=== PATIENT | female | born 1930 | race Caucasian/White ===

== ENCOUNTER 2017-02-10 18:59 | Inpatient (IN) | payer MEDICARE ==
[~2017-02-10] VITALS: Ht 162.6 cm; Wt 90.7 kg
[~2017-02-10 18:59] MED LIST: ACETAMINOPHEN650 MG PO; ARICEPT10 M1 PO; ASPIR 8181 MG PO; ASTELIN30 ML NS; AZELASTINE137 MCG/0.; B12 PO; CALCIUM + D 601 EACH PO; CALCIUM600 MG PO; CEFUROXIME500 MG PO; CENTRUM SILVER1 EAC3 PO; COLACE50 MG PO; DESYREL100 MG PO; FAMOTIDINE20 MG PO; FUROSEMIDE40 MG PO; LANTUS100 UNIT/1 SQ; LEVAQUIN500 MG PO; LEVEMIR 3M100 UNITS/ SC; LEVEMIR100 UNIT/1 SQ; LEVOTHYROXINE125 MCG PO; LORAZEPAM0.5 MG PO; LUMIGAN2.5 M1 OU; MEDROL4 MG/DOSE- PO; METOPROLOL SUCC25 MG PO; MUCINEX DM ER1 EACH PO; NAMENDA10 MG PO; NITROGLYCERIN0.4 MG SL; NITROGLYCERIN1 EAC1 TOP; NORVASC5 MG PO; NOVOLOG100 UNIT/1 SC; NOVOLOG100 UNIT/1 SQ; REFRESH OPTIVE15 ML OU; RESTASIS1 EACH OU; TAMIFLU75 MG PO; TUSSIONEX PENN473 ML PO; ULTRAM 50MG50 MG PO; Z NOVOLIN N SQ; Z.0.AMLODIPINE BES2. PO; Z.0.FUROSEMIDE20 MG PO; Z.0.LANTUS100 UNIT/1 SQ; Z.0.LUMIGAN2.5 M1 OU; Z.0.NAMENDA10 MG PO; Z.0.SYNTHROID125 MCG PO; Z.0.ZYRTEC10 M3 PO; [UNRECOGNIZED DRUG - MIXTURE] PO; [UNRECOGNIZED DRUG - OTHER]; [UNRECOGNIZED DRUG - OTHER] NS; [UNRECOGNIZED DRUG - OTHER] PO; miralax PO; timolol OP
[2017-02-10] MEDS ORDERED: SODIUM CHLORIDE 0.9% 1000ML 1,000 ML IV ONE ×2 (20:15→21:30)
[2017-02-10] MEDS ORDERED: SODIUM CHLORIDE 0.9% 1000ML 2,000 ML ONE (20:17)
[2017-02-10 20:56] LABS: BILIRUBIN,URINE NEGATIVE (NEGATIVE); CLARITY,URINE CLEAR (CLEAR); COLOR,URINE YELLOW (YELLOW); KETONES,URINE 2+ (NEGATIVE); LEUKOCYTE ESTERASE ,URINE NEGATIVE (NEGATIVE); NITRITE,URINE NEGATIVE (NEGATIVE); PROTEIN,URINE DIPSTICK NEGATIVE (NEGATIVE); URINE UROBILINOGEN 0.2 mg/dL (0.2 - 1)
[2017-02-10] MEDS ORDERED: INSULIN REGULAR, HUMAN 100 UNIT/1 ML 3ML VIAL SQ ONE (21:00)
[2017-02-10 21:04] LABS: BASOPHILS # (AUTO) 0.1 (0.0-0.1); BASOPHILS % 0.4 % (0.0-1.0); HEMATOCRIT 42.1 % (34.2-44.1); HEMOGLOBIN 13.4 g/dL (12.0-16.0); LYMPHOCYTES # (AUTO) 0.6 (1.0-3.2); LYMPHOCYTES % 3.2 % (18.0-39.1); MEAN CORPUSCULAR HEMOGLOBIN 33.3 pg (28-32); MEAN CORPUSCULAR HGB CONC 31.8 g/dL (31-35); MEAN CORPUSCULAR VOLUME 104.5 fL (81-99); MONOCYTES # (AUTO) 0.9 (0.2-0.8); MONOCYTES % 4.6 % (4.4-11.3); NEUTROPHILS # (AUTO) 17.4 (2.1-6.9); NEUTROPHILS % 89.1 % (38.7-80.0); PLATELET COUNT 330 x10e3/uL (140-360); RED BLOOD COUNT 4.03 x10e6/uL (3.6-5.1); RED CELL DISTRIBUTION WIDTH 15.7 % (11.7-14.4)
[2017-02-10 21:12] LABS: EPITHELIAL CELLS,URINE FEW /LPF; RBC,URINE 0-5 /HPF (0-5); WBC,URINE (MAN) 0-5 /HPF (0-5)
--- NOTE | 2017-02-10 21:29 | Diagnostic Imaging Report ---
EXAMINATION: Head CT without contrast. HISTORY:Altered mental status. COMPARISON:CT brain from 11/24/2013. TECHNIQUE: Multidetector axial images were obtained from the foramen magnum to the vertex without contrast. The images were reconstructed using brain and bone algorithms. Thin section brain images were reformatted into coronal and sagittal planes. Intravenous contrast: None IMAGE QUALITY: Acceptable. FINDINGS: Skull/scalp: Unchanged heterogeneous bone marrow density within the skull base possibly due to osseous demineralization. Parenchyma: Nonspecific bilateral frontoparietal patchy white matter hypodensity are likely related to small vessel ischemic changes. No acute intracranial hemorrhage, mass or acute major vascular territorial infarct. Arteries: No density suggestive of thrombosis. Dural sinuses: No abnormal density suggestive of thrombosis. Ventricles: Unchanged moderate ventriculomegaly disproportionate to the extent of cerebral volume loss, may represent normal pressure hydrocephalus in the appropriate clinical setting. Extra-axial spaces: Unchanged tiny punctate fat density lesions scattered in the anterior interhemispheric fissure likely represents tiny lipoma. Brain volume: Normal for age. Craniocervical junction: No mass, Chiari malformation, or basilar invagination. Sella: No mass. Paranasal/mastoid sinuses: Mild mucosal thickening in bilateral maxillary and sphenoid sinuses. IMPRESSION: No acute intracranial abnormality, particularly no acute hemorrhage, mass or acute major vascular territorial infarct. Interval development of mild supratentorial white matter microvascular ischemic changes. Otherwise, no change since CT head from 11/24/2013. Chronic findings: Moderate ventriculomegaly disproportionate to the amount of cerebral volume loss, may represent normal pressure hydrocephalus in the appropriate clinical setting. Signed by: Dr. Josephine Phillips M.D. on 02/10/2017 9:26 PM
[2017-02-10 21:30] LABS: ALBUMIN/GLOBULIN RATIO 0.7 (0.8-2.0); ANION GAP 44.9 mmol/L (8-16); CALCIUM 8.2 mg/dL (8.4-10.2); CREATININE, SERUM 3.51 mg/dL (0.57-1.11); POTASSIUM 3.9 mmol/L (3.5-5.1)
[2017-02-10 21:38] LABS: CREATINE KINASE MB 1.8 ng/mL (0.00-5.00); TROPONIN I 0.019 ng/mL (0-0.300)
[2017-02-10] MEDS ORDERED: SODIUM CHLORIDE 0.9% 1000ML 1,000 ML IV SCH (21:39)
[2017-02-10] MEDS ORDERED: INSULIN REGULAR, HUMAN 3ML VL 100 UNIT in SODIUM CHLORIDE 0.9% 100 ML IV SCH ×2 (21:45)
[2017-02-10] MEDS ORDERED: INSULIN DETEMIR 100 UNIT/ML PEN SQ PRN (21:45)
[2017-02-10] MEDS ORDERED: MAGNESIUM SULF 1GRAM/DEXTROSE 100 ML IV PRN (21:45)
--- NOTE | 2017-02-10 21:56 | Diagnostic Imaging Report ---
EXAMINATION: CHEST SINGLE (PORTABLE) INDICATION: Altered mental status COMPARISON: 08/23/2015 FINDINGS: TUBES and LINES: None. LUNGS: Lungs are not well inflated. Lungs are clear. There is no evidence of pneumonia or pulmonary edema. PLEURA: No pleural effusion or pneumothorax. HEART AND MEDIASTINUM: Cardiac size is mildly enlarged. There are atherosclerotic calcifications within the aorta. BONES AND SOFT TISSUES: No acute osseous lesion. Soft tissues are unremarkable. UPPER ABDOMEN: No free air under the diaphragm. IMPRESSION: 1. No acute thoracic abnormality. 2. Mild cardiomegaly without the compensation. Signed by: Dr. Tone Husain M.D. on 02/10/2017 9:53 PM
[2017-02-10] MEDS ORDERED: POTASSIUM CHLORIDE 100 ML IV ONE (22:00)
[2017-02-10 22:12] LABS: LYMPHOCYTES % (MANUAL) 3 % (19-48); METAMYELOCYTES % (MANUAL) 2 % (0-0); MONOCYTES % (MANUAL) 3 % (3.4-9.0); NEUTROPHILS % (MANUAL) 92 % (40-74)
[2017-02-10 22:13] LABS: PLATELET ESTIMATE ADEQUATE; PLATELET MORPHOLOGY COMMENT FEW LARGE; RBC MORPHOLOGY COMMENT NORMAL
[2017-02-10] MEDS ORDERED: ACETAMINOPHEN 1000 MG/100 ML IV PRN (22:15)
[2017-02-10] MEDS ORDERED: ONDANSETRON HCL INJ 2 MG/ML VIAL IV PRN (22:15)
[2017-02-10] MEDS: DEXTROSE 5%/0.45% SOD CHL 1,000 ML IV SCH (23:52)
[2017-02-11] VITALS (9 sets, daily range): BP systolic 85–124; BP diastolic 33–73
[2017-02-11 00:21] LABS: ANION GAP 31.1 mmol/L (8-16); CALCIUM 7.2 mg/dL (8.4-10.2); CREATININE, SERUM 2.88 mg/dL (0.57-1.11); MAGNESIUM 2.6 MG/DL (1.3-2.1); POTASSIUM 4.1 mmol/L (3.5-5.1)
[2017-02-11] MEDS ORDERED: POTASSIUM CHLO10 ME1 PO (01:38)
[2017-02-11] MEDS ORDERED: LORATADINE10 MG PO (01:38)
[2017-02-11] MEDS ORDERED: ALBUTEROL0.63 MG/3 INH (01:38)
[2017-02-11] MEDS ORDERED: PANTOPRAZOLE SO40 MG PO (01:38)
[2017-02-11] MEDS ORDERED: TIMOLOL MALEATE10 ML OU (01:38)
[2017-02-11] MEDS ORDERED: BENZONATATE100 MG PO (01:38)
[2017-02-11] MEDS ORDERED: MELATONIN3 MG PO (01:38)
[2017-02-11] MEDS ORDERED: TRAVATAN Z5 ML OP (01:38)
[2017-02-11] MEDS ORDERED: DORZOLAMIDE-TIM10 ML OP (01:38)
[2017-02-11] MEDS ORDERED: RESTASIS1 EACH OU (01:38)
[2017-02-11] MEDS ORDERED: ADVAIR 250-501 EACH INH (01:38)
[2017-02-11] MEDS ORDERED: ARICEPT5 MG PO (01:38)
[2017-02-11] MEDS ORDERED: GLIPIZIDE5 MG PO (01:38)
[2017-02-11] MEDS ORDERED: HUMALOG100 UNIT/1 SC (01:38)
[2017-02-11] MEDS: DEXTROSE 5%/0.45% SOD CHL 1,000 ML IV SCH ×2 (02:00→13:20)
[2017-02-11 04:20] LABS: BASOPHILS % 0.2 % (0.0-1.0); HEMATOCRIT 34.6 % (34.2-44.1); HEMOGLOBIN 11.9 g/dL (12.0-16.0); LYMPHOCYTES # (AUTO) 1.1 (1.0-3.2); LYMPHOCYTES % 6.5 % (18.0-39.1); MEAN CORPUSCULAR HEMOGLOBIN 33.1 pg (28-32); MEAN CORPUSCULAR HGB CONC 34.4 g/dL (31-35); MEAN CORPUSCULAR VOLUME 96.4 fL (81-99); MONOCYTES % 5.7 % (4.4-11.3); NEUTROPHILS # (AUTO) 14.4 (2.1-6.9); NEUTROPHILS % 86.7 % (38.7-80.0); PLATELET COUNT 238 x10e3/uL (140-360); RED BLOOD COUNT 3.59 x10e6/uL (3.6-5.1); RED CELL DISTRIBUTION WIDTH 15.6 % (11.7-14.4)
[2017-02-11 04:38] LABS: ALBUMIN 2.5 g/dL (3.5-5.0); ALBUMIN/GLOBULIN RATIO 0.7 (0.8-2.0); ANION GAP 19.6 mmol/L (8-16); CALCIUM 7.2 mg/dL (8.4-10.2); CREATININE, SERUM 2.72 mg/dL (0.57-1.11); POTASSIUM 3.6 mmol/L (3.5-5.1)
[2017-02-11 04:44] LABS: CREATINE KINASE MB 3.3 ng/mL (0.00-5.00); TROPONIN I 0.021 ng/mL (0-0.300)
[2017-02-11] MEDS ORDERED: SODIUM CHLORIDE 0.9% 1000ML 1,000 ML IV SCH (05:45)
[2017-02-11] MEDS: DEXTROSE 50% SYRINGE 50 ML IV PRN (06:18)
[2017-02-11 11:10] LABS: ANION GAP 20.1 mmol/L (8-16); CREATININE, SERUM 2.25 mg/dL (0.57-1.11); POTASSIUM 4.1 mmol/L (3.5-5.1)
[2017-02-11 11:13] LABS: CALCIUM 6.5 mg/dL (8.4-10.2)
[2017-02-11] MEDS: INSULIN REGULAR, HUMAN 100 UNIT/1 ML 3ML VIAL SQ SCH ×4 (11:30→21:00)
[2017-02-11] MEDS: ALBUTEROL SULF 0.083% NEB SOLN 3 ML NEB INH SCH (12:30)
[2017-02-11] MEDS ORDERED: BENZONATATE 100 MG CAP PO PRN (12:30)
[2017-02-11] MEDS: BIMATOPROST(OPTH) 2.5 ML BOTTLE OP SCH (12:30)
[2017-02-11] MEDS ORDERED: LORAZEPAM 0.5 MG TAB PO PRN (12:30)
[2017-02-11] MEDS: GUAIFENESIN 600MG/DEXTROMETHORPHAN 30MG TABSR PO SCH ×3 (12:30→23:32)
[2017-02-11] MEDS ORDERED: [UNRECOGNIZED DRUG - OTHER] OU SCH (12:30)
[2017-02-11] MEDS ORDERED: GLYCERIN OU SCH (12:30)
[2017-02-11] MEDS ORDERED: CARBOXYMETHYLCELLULOS OU SCH (12:30)
[2017-02-11] MEDS: HEPARIN SOD (PORCINE) 5,000 UNIT/ML VIAL SC SCH ×2 (12:45→22:09)
[2017-02-11] MEDS: ARTIFICIAL TEARS (OPTH) 15 ML BTL OU SCH ×3 (13:00→21:00)
[2017-02-11] MEDS ORDERED: CALCIUM CHLORIDE 10% IV NR (14:00)
[2017-02-11] MEDS ORDERED: CALCIUM GLUCONATE 10% INJ 9.3 MEQ in SODIUM CHLORIDE 0.9% 100 ML 100 ML IV SCH (14:00)
[2017-02-11] MEDS ORDERED: SODIUM CHLORIDE 0.9% IV NR (14:00)
--- NOTE | 2017-02-11 14:27 | History and Physical ---
PRIMARY CARE PROVIDER: skilled nursing doctor. CHIEF COMPLAINT: Altered mental status and elevated sugar. HISTORY OF PRESENT ILLNESS: Ms. Rivera is an 86-year-old lady who resides at [facility]. She has been somewhat noncompliant with diet and difficult, not wanting to eat. She is blind. She does not want to go to the dining room to be fed, so the patient has had poor p.o. intake for the last couple of weeks. They have been holding her insulin, and today she has altered mental status. Blood sugar was noted to be around 500. She was sent to the hospital for evaluation. REVIEW OF SYSTEMS: Unobtainable due to patient being lethargic and impaired mental status. PAST MEDICAL HISTORY: Significant for hypertension, type-2 diabetes, hypothyroidism, dementia, COPD. She resides at [facility]. CURRENT MEDICATION LIST: Includes: 1. Tylenol as needed. 2. Astelin nasal spray. 3. Pepcid 20 mg daily. 4. Lasix 20 mg daily. 5. Glipizide 10 mg twice a day. 6. NovoLog insulin on sliding scale. 7. Claritin 10 mg daily. 8. She just finished a course of Levaquin and Tamiflu for pneumonia. 9. Potassium chloride 20 mEq daily. 10. Tramadol as needed. 11. Restasis eye drops twice a day. 12. Colace 50 mg daily. 13. Levemir 8 units at bedtime and 15 units in the a.m. 14. Several different types of eye drops for glaucoma. 15. Albuterol nebulizer treatments as needed. 16. Norvasc 10 mg daily. 17. Aspirin 81 mg daily. 18. Calcium carbonate 600 mg daily. 19. Aricept 10 mg at bedtime. 20. Advair Diskus 1 inhalation twice a day. 21. Levothyroxine 88 mcg daily. 22. Lorazepam 0.5 mg twice a day as needed for anxiety. 23. Melatonin 1 mg at bedtime. 24. Namenda 10 mg at bedtime. 25. Metoprolol succinate 12.5 mg twice a day. 26. Centrum Silver daily. 27. Protonix 40 mg q.a.m. PAST SURGICAL HISTORY: Unknown. ALLERGIES: THE PATIENT HAS A STATED ALLERGY TO CODEINE. FAMILY HISTORY: Unknown. SOCIAL HISTORY: The patient resides at [facility]. She does not smoke, drink or use illegal drugs. She requires quite a bit of assistance. She is wheelchair dependent and requires help with feeding because of blindness. PHYSICAL EXAMINATION PSYCHIATRIC: Unobtainable. The patient is lethargic. Has a normal body habitus. Is in no acute distress. VITAL SIGNS: Blood pressure initially 156/42, came down to 78/36, and currently is 94/52. The patient has been on no pressors. Pulse rate initially 100, now 77 and regular. Respiratory rate 15. O2 sat 100%. Temperature 97.6. HEENT: Head is atraumatic. Her eyes are anicteric with clear conjunctivae. Ears and nares are without erythema or discharge. Oropharynx is clear. NECK: Supple, with no mass or thyromegaly. LYMPHATIC SYSTEM: She has no palpable cervical, axillary or inguinal adenopathy. CARDIOVASCULAR: Her heart has a regular rate and rhythm without murmur or extra sounds. She has no carotid bruit. She has no peripheral edema. She has palpable dorsal pedal pulses. RESPIRATORY: Lungs reveal diminished breath sounds, otherwise clear with normal respiratory effort. GASTROINTESTINAL: Abdomen is soft without organomegaly, masses or tenderness. She has normal bowel sounds present. CUTANEOUS: Her skin is warm and dry to touch with no rash or skin breakdown. MUSCULOSKELETAL: Her joints are in normal alignment without erythema or swelling. She has no calf tenderness. NEUROLOGIC: Exam is nonfocal with intact cranial nerves and no motor or sensory deficits. DIAGNOSTIC STUDIES: Chest x-ray shows no acute disease. CT scan of the brain shows mild microvascular changes and some ventriculomegaly but no acute changes. Her UA is clear. Flu screen is negative. Her chemistries show normal electrolytes, CO2 7, glucose 587, creatinine 3.51, BUN 58 for a GFR of 12. Calcium 8.2. Baseline GFR was 34 six months ago. Calcium 8.2. Magnesium 2.8. Anion gap is 44.9. After being on a DKA protocol and getting fluid boluses and insulin drip, her chemistry this morning shows normal electrolytes, CO2 28, creatinine 2.72 and BUN 53 for a GFR of 16. Calcium is 7.2. Magnesium 2.0. Transaminases, bilirubin and alk phos are normal. Her CBC showed a white count of 19.57 with 92% neutrophils, 3% lymphocytes, 3% monocytes, hemoglobin 13.4, hematocrit 42.1 and platelet count 330,000. After the hydration overnight and DKA protocol, the patient's white count is 16.5 with 87% neutrophils, hemoglobin 11.9, hematocrit 34.6 and platelet count 238,000. IMPRESSION AND PLAN 1. Uncontrolled type-2 diabetes with diabetic ketoacidosis. The patient will be admitted to the ICU on DKA insulin drip protocol. She was on this overnight. The DKA is resolving. The patient will be changed to subcutaneous Levemir twice a day and sliding-scale insulin. Her diet will be advanced to 1800 calorie, pureed diet but will continue IV D5 half-normal until the patient is eating better due to impaired mental status. 2. Acute kidney injury. The patient received fluid bolus and is now on maintenance fluids. Will monitor renal function and volume status until the patient's renal function is back to baseline. 3. Hypertension complicated by chronic kidney disease, stage 3. Will continue her Norvasc and metoprolol. 4. Chronic obstructive pulmonary disease. Will continue routine nebs. 5. Dementia. Will provide supportive care. Will assess her feeding as she starts to wake up. The patient may or may not need a PEG, but we will wait a couple of days to decide. 6. For prophylaxis, the patient is on Protonix for GI prophylaxis and subcutaneous heparin for DVT prophylaxis. DISPOSITION: The patient has been in the ICU overnight. Her DKA has resolved, and the patient will be transferred to the floor. ADDENDUM: Sixty minutes of critical care time spent with the patient and the family on H and P. Job#: [id number]
[2017-02-11] MEDS: INSULIN DETEMIR 100 UNIT/ML PEN SQ SCH ×2 (14:47→21:33)
[2017-02-11] MEDS: DORZOLAMIDE/TIMOLOL (OPTH SOL) 10 ML DRPETTE OP SCH ×2 (15:00→21:00)
[2017-02-11] MEDS ORDERED: CALCIUM CHLORIDE 10% IV ONE (16:30)
[2017-02-11] MEDS ORDERED: SODIUM CHLORIDE 0.9% IV ONE (16:30)
[2017-02-11] MEDS ORDERED: LEVOTHYROXINE SODIUM 125 MCG TAB PO SCH (16:30)
[2017-02-11 16:46] LABS: ANION GAP 19.8 mmol/L (8-16); CREATININE, SERUM 2.35 mg/dL (0.57-1.11); MAGNESIUM 1.8 MG/DL (1.3-2.1); POTASSIUM 3.8 mmol/L (3.5-5.1)
[2017-02-11 16:48] LABS: CALCIUM 6.9 mg/dL (8.4-10.2)
[2017-02-11 16:49] LABS: CREATINE KINASE MB 3.6 ng/mL (0.00-5.00); TROPONIN I 0.032 ng/mL (0-0.300)
[2017-02-11] MEDS: TIMOLOL MALEATE(OPTHALMIC) 1 EA BTL OU SCH (17:00)
[2017-02-11] MEDS: METOPROLOL SUCCINATE 25 MG TAB XL PO SCH (17:00)
[2017-02-11 20:58] LABS: ANION GAP 16.4 mmol/L (8-16); CREATININE, SERUM 2.08 mg/dL (0.57-1.11); MAGNESIUM 1.8 MG/DL (1.3-2.1); POTASSIUM 3.4 mmol/L (3.5-5.1)
[2017-02-11 21:00] LABS: CALCIUM 6.7 mg/dL (8.4-10.2)
[2017-02-11] MEDS: MELATONIN 3 MG TAB PO SCH (21:00)
[2017-02-11] MEDS: DONEPEZIL HCL 5 MG TAB PO SCH (21:00)
[2017-02-11] MEDS ORDERED: MELATONIN 3 MG TAB PO SCH (21:00)
[2017-02-11] MEDS: TRAVOPROST(OPTH) 2.5 ML BTL OP SCH (21:00)
[2017-02-11] MEDS: MEMANTINE 10 MG TAB PO SCH (21:00)
[2017-02-12] VITALS: BP 103/54
[2017-02-12] MEDS: DEXTROSE 5%/0.45% SOD CHL 1,000 ML IV SCH ×2 (01:50→14:20)
[2017-02-12] MEDS: GUAIFENESIN 600MG/DEXTROMETHORPHAN 30MG TABSR PO SCH ×5 (05:52→20:29)
[2017-02-12] MEDS: LEVOTHYROXINE SODIUM 88 MCG TAB PO SCH ×2 (05:53→20:29)
[2017-02-12 07:15] LABS: BASOPHILS % 0.2 % (0.0-1.0); EOSINOPHILS % 0.3 % (0.0-6.0); HEMATOCRIT 31.1 % (34.2-44.1); HEMOGLOBIN 10.7 g/dL (12.0-16.0); LYMPHOCYTES # (AUTO) 1.7 (1.0-3.2); LYMPHOCYTES % 16.3 % (18.0-39.1); MEAN CORPUSCULAR HEMOGLOBIN 33.4 pg (28-32); MEAN CORPUSCULAR HGB CONC 34.4 g/dL (31-35); MEAN CORPUSCULAR VOLUME 97.2 fL (81-99); MONOCYTES # (AUTO) 0.5 (0.2-0.8); MONOCYTES % 4.6 % (4.4-11.3); NEUTROPHILS # (AUTO) 8.1 (2.1-6.9); PLATELET COUNT 178 x10e3/uL (140-360); RED CELL DISTRIBUTION WIDTH 16.1 % (11.7-14.4)
[2017-02-12] MEDS: DEXTROSE 50% SYRINGE 50 ML IV PRN (07:27)
[2017-02-12] MEDS: INSULIN REGULAR, HUMAN 100 UNIT/1 ML 3ML VIAL SQ SCH ×4 (07:30→20:28)
[2017-02-12] MEDS: PANTOPRAZOLE SOD 40 MG TABEC PO SCH (07:30)
[2017-02-12] MEDS: ALBUTEROL SULF 0.083% NEB SOLN 3 ML NEB INH SCH ×3 (07:33→21:00)
[2017-02-12 07:39] LABS: ANION GAP 11.9 mmol/L (8-16); CALCIUM 7.2 mg/dL (8.4-10.2); CREATININE, SERUM 1.49 mg/dL (0.57-1.11); MAGNESIUM 1.9 MG/DL (1.3-2.1)
[2017-02-12 07:51] VITALS: BP 103/50
[2017-02-12 08:01] LABS: POTASSIUM 2.9 mmol/L (3.5-5.1); THYROID STIMULATING HORMONE 14.939 uIU/mL (0.350-4.940)
[2017-02-12] MEDS: MULTIVITAMINS/MINERALS TAB PO SCH (08:22)
[2017-02-12] MEDS: ASPIRIN 81 MG CHEW TAB PO SCH (08:22)
[2017-02-12] MEDS: AMLODIPINE BESYLATE 5 MG TAB PO SCH (08:22)
[2017-02-12] MEDS: OYST-CAL-D 500MG TABLET PO SCH (08:23)
[2017-02-12] MEDS: INSULIN DETEMIR 100 UNIT/ML PEN SQ SCH ×2 (08:23→20:28)
[2017-02-12] MEDS: METOPROLOL SUCCINATE 25 MG TAB XL PO SCH ×2 (08:23→16:31)
[2017-02-12] MEDS: ARTIFICIAL TEARS (OPTH) 15 ML BTL OU SCH ×4 (08:41→20:27)
[2017-02-12] MEDS: BIMATOPROST(OPTH) 2.5 ML BOTTLE OP SCH (08:41)
[2017-02-12] MEDS: SALMETEROL/FLUTICASONE 250/50 INH SCH (08:41)
[2017-02-12] MEDS: DORZOLAMIDE/TIMOLOL (OPTH SOL) 10 ML DRPETTE OP SCH ×3 (08:41→20:27)
[2017-02-12] MEDS: TIMOLOL MALEATE(OPTHALMIC) 1 EA BTL OU SCH ×2 (08:43→16:46)
[2017-02-12] MEDS ORDERED: NON-FORMULARY MEDICATION (Mu-Vits-Min Th/Lycopene/Lutein (Centrum Silver Tablet) 1 TAB) PO SCH (09:00)
[2017-02-12] MEDS ORDERED: NON-FORMULARY MEDICATION (Calcium Carbonate (Calcium) 1 TAB) PO SCH (09:00)
[2017-02-12] MEDS: HEPARIN SOD (PORCINE) 5,000 UNIT/ML VIAL SC SCH ×2 (10:15→21:04)
[2017-02-12] MEDS ORDERED: POTASSIUM CHL IV ONE (11:30)
[2017-02-12] MEDS ORDERED: SODIUM CHLORIDE 0.9% IV ONE (11:30)
[2017-02-12 13:07] VITALS: BP 105/60
[2017-02-12] MEDS: CALCIUM CARBONATE 500 MG CHEWABLE TABS PO SCH (16:31)
[2017-02-12 17:33] VITALS: BP 101/59
[2017-02-12 20:00] VITALS: BP 112/55
[2017-02-12] MEDS: TRAVOPROST(OPTH) 2.5 ML BTL OP SCH (20:27)
[2017-02-12] MEDS: MEMANTINE 10 MG TAB PO SCH (20:28)
[2017-02-12] MEDS: MELATONIN 3 MG TAB PO SCH (20:28)
[2017-02-12] MEDS: DONEPEZIL HCL 5 MG TAB PO SCH (20:28)
[2017-02-12 23:03] LABS: ANION GAP 11.4 mmol/L (8-16); CREATININE, SERUM 1.01 mg/dL (0.57-1.11); POTASSIUM 4.4 mmol/L (3.5-5.1)
[2017-02-12 23:05] LABS: CALCIUM 6.9 mg/dL (8.4-10.2)
[2017-02-13] VITALS: BP 118/74
[2017-02-13] MEDS: ALBUTEROL SULF 0.083% NEB SOLN 3 ML NEB INH SCH ×4 (03:05→19:55)
[2017-02-13 04:00] VITALS: BP 124/78
[2017-02-13] MEDS: DEXTROSE 5%/0.45% SOD CHL 1,000 ML IV SCH ×3 (05:48→22:25)
[2017-02-13] MEDS ORDERED: CALCIUM GLUCONATE 10% INJ 4.65 MEQ in SODIUM CHLORIDE 0.9% 50ML 50 ML IV ONE (06:45)
[2017-02-13] MEDS: PANTOPRAZOLE SOD 40 MG TABEC PO SCH (07:30)
[2017-02-13 07:47] LABS: BASOPHILS % 0.2 % (0.0-1.0); EOSINOPHILS # (AUTO) 0.1 (0.0-0.4); EOSINOPHILS % 0.9 % (0.0-6.0); HEMATOCRIT 34.8 % (34.2-44.1); HEMOGLOBIN 11.5 g/dL (12.0-16.0); LYMPHOCYTES % 15.6 % (18.0-39.1); MEAN CORPUSCULAR HEMOGLOBIN 33.1 pg (28-32); MEAN CORPUSCULAR VOLUME 100.3 fL (81-99); MONOCYTES # (AUTO) 0.3 (0.2-0.8); MONOCYTES % 4.7 % (4.4-11.3); NEUTROPHILS % 78.1 % (38.7-80.0); PLATELET COUNT 158 x10e3/uL (140-360); RED BLOOD COUNT 3.47 x10e6/uL (3.6-5.1); RED CELL DISTRIBUTION WIDTH 16.7 % (11.7-14.4)
[2017-02-13] MEDS: AMLODIPINE BESYLATE 5 MG TAB PO SCH (07:51)
[2017-02-13] MEDS: ASPIRIN 81 MG CHEW TAB PO SCH (07:51)
[2017-02-13] MEDS: OYST-CAL-D 500MG TABLET PO SCH (07:51)
[2017-02-13] MEDS: MULTIVITAMINS/MINERALS TAB PO SCH (07:51)
[2017-02-13] MEDS: METOPROLOL SUCCINATE 25 MG TAB XL PO SCH ×2 (07:51→17:00)
[2017-02-13] MEDS: HEPARIN SOD (PORCINE) 5,000 UNIT/ML VIAL SC SCH ×2 (07:52→22:20)
[2017-02-13] MEDS: CALCIUM CARBONATE 500 MG CHEWABLE TABS PO SCH ×2 (07:52→17:00)
[2017-02-13] MEDS: INSULIN REGULAR, HUMAN 100 UNIT/1 ML 3ML VIAL SQ SCH ×4 (07:53→21:00)
[2017-02-13] MEDS: DORZOLAMIDE/TIMOLOL (OPTH SOL) 10 ML DRPETTE OP SCH ×3 (08:17→22:19)
[2017-02-13] MEDS: ARTIFICIAL TEARS (OPTH) 15 ML BTL OU SCH ×4 (08:17→22:19)
[2017-02-13] MEDS: SALMETEROL/FLUTICASONE 250/50 INH SCH (08:17)
[2017-02-13] MEDS: TIMOLOL MALEATE(OPTHALMIC) 1 EA BTL OU SCH ×2 (08:17→17:18)
[2017-02-13] MEDS: BIMATOPROST(OPTH) 2.5 ML BOTTLE OP SCH (08:17)
[2017-02-13 08:21] LABS: ANION GAP 11.4 mmol/L (8-16); CREATININE, SERUM 0.94 mg/dL (0.57-1.11); MAGNESIUM 1.9 MG/DL (1.3-2.1); POTASSIUM 4.4 mmol/L (3.5-5.1)
[2017-02-13 08:25] LABS: CALCIUM 6.8 mg/dL (8.4-10.2)
[2017-02-13] MEDS: INSULIN DETEMIR 100 UNIT/ML PEN SQ SCH (09:14)
[2017-02-13] MEDS ORDERED: SODIUM CHLORIDE 0.9% IV ONE (10:30)
[2017-02-13] MEDS ORDERED: CALCIUM CHLORIDE IV ONE (10:30)
[2017-02-13 10:47] VITALS: BP 120/55
[2017-02-13] MEDS: GUAIFENESIN 600MG/DEXTROMETHORPHAN 30MG TABSR PO SCH ×3 (12:00→22:17)
[2017-02-13 16:38] VITALS: BP 115/57
[2017-02-13] MEDS ORDERED: LEVOTHYROXINE SODIUM 100 MCG/VIAL IV ONE (17:00)
[2017-02-13 20:00] VITALS: BP 114/52
[2017-02-13] MEDS: MELATONIN 3 MG TAB PO SCH (21:00)
[2017-02-13] MEDS: MEMANTINE 10 MG TAB PO SCH (21:00)
[2017-02-13] MEDS: DONEPEZIL HCL 5 MG TAB PO SCH (21:00)
[2017-02-13] MEDS: TRAVOPROST(OPTH) 2.5 ML BTL OP SCH (22:19)
[2017-02-14] VITALS: BP 107/55
[2017-02-14] MEDS: ALBUTEROL SULF 0.083% NEB SOLN 3 ML NEB INH SCH ×3 (01:13→19:26)
[2017-02-14 04:00] VITALS: BP 101/45
[2017-02-14 07:08] LABS: BASOPHILS % 0.4 % (0.0-1.0); EOSINOPHILS # (AUTO) 0.2 (0.0-0.4); EOSINOPHILS % 2.7 % (0.0-6.0); HEMATOCRIT 33.9 % (34.2-44.1); LYMPHOCYTES # (AUTO) 1.7 (1.0-3.2); LYMPHOCYTES % 31.5 % (18.0-39.1); MEAN CORPUSCULAR HEMOGLOBIN 32.9 pg (28-32); MEAN CORPUSCULAR HGB CONC 32.4 g/dL (31-35); MEAN CORPUSCULAR VOLUME 101.5 fL (81-99); MONOCYTES # (AUTO) 0.3 (0.2-0.8); NEUTROPHILS # (AUTO) 3.2 (2.1-6.9); PLATELET COUNT 149 x10e3/uL (140-360); RED BLOOD COUNT 3.34 x10e6/uL (3.6-5.1); RED CELL DISTRIBUTION WIDTH 16.5 % (11.7-14.4)
[2017-02-14] MEDS: INSULIN REGULAR, HUMAN 100 UNIT/1 ML 3ML VIAL SQ SCH ×4 (07:30→21:00)
[2017-02-14] MEDS: PANTOPRAZOLE SOD 40 MG TABEC PO SCH (07:30)
[2017-02-14] MEDS: SALMETEROL/FLUTICASONE 250/50 INH SCH (07:31)
[2017-02-14 07:37] LABS: ANION GAP 10.6 mmol/L (8-16); BLOOD UREA NITROGEN 9 mg/dL (7-26); BUN/CREATININE RATIO 14 (6-25); CARBON DIOXIDE 27 mmol/L (22-29); CHLORIDE 108 mmol/L (98-107); CREATININE, SERUM 0.63 mg/dL (0.57-1.11); EST GLOMERULAR FILTRATION RATE > 60 ML/MIN (60-); GLUCOSE 93 mg/dL (74-118); POTASSIUM 3.6 mmol/L (3.5-5.1); SODIUM 142 mmol/L (136-145)
[2017-02-14 07:40] LABS: CALCIUM 6.9 mg/dL (8.4-10.2)
[2017-02-14 08:00] VITALS: BP 124/62
[2017-02-14] MEDS ORDERED: CALCIUM GLUCONATE 10% INJ 9.3 MEQ in SODIUM CHLORIDE 0.9% 100 ML 100 ML IV ONE (08:30)
[2017-02-14] MEDS: OYST-CAL-D 500MG TABLET PO SCH (09:00)
[2017-02-14] MEDS: INSULIN DETEMIR 100 UNIT/ML PEN SQ SCH (09:00)
[2017-02-14] MEDS: MULTIVITAMINS/MINERALS TAB PO SCH (09:00)
[2017-02-14] MEDS: AMLODIPINE BESYLATE 5 MG TAB PO SCH (09:00)
[2017-02-14] MEDS: CALCIUM CARBONATE 500 MG CHEWABLE TABS PO SCH ×2 (09:00→17:05)
[2017-02-14] MEDS: METOPROLOL SUCCINATE 25 MG TAB XL PO SCH ×2 (09:00→15:42)
[2017-02-14] MEDS: ASPIRIN 81 MG CHEW TAB PO SCH (09:00)
[2017-02-14] MEDS: BIMATOPROST(OPTH) 2.5 ML BOTTLE OP SCH (09:57)
[2017-02-14] MEDS: DORZOLAMIDE/TIMOLOL (OPTH SOL) 10 ML DRPETTE OP SCH ×3 (09:57→21:00)
[2017-02-14] MEDS: HEPARIN SOD (PORCINE) 5,000 UNIT/ML VIAL SC SCH ×2 (09:58→21:00)
[2017-02-14] MEDS: TIMOLOL MALEATE(OPTHALMIC) 1 EA BTL OU SCH ×2 (09:58→17:05)
[2017-02-14] MEDS: DEXTROSE 5%/0.45% SOD CHL 1,000 ML IV SCH ×2 (09:59→21:30)
[2017-02-14] MEDS: ARTIFICIAL TEARS (OPTH) 15 ML BTL OU SCH ×4 (09:59→21:00)
--- NOTE | 2017-02-14 10:31 | Progress Note ---
DATE: PCP: Dr. Eliseo Villalta CHIEF COMPLAINT: Altered mental status, dehydration and DKA. SUBJECTIVE: No new issues. Patient's son and [id number] are at bedside. Asked questions about Hospice versus PEG tube versus NG tube. All questions were answered. OBJECTIVE VITALS: Temperature 96.1, pulse 64, blood pressure 120/55, respirations 20, and satting 93%, weight 200, BMI 34.32. GENERAL: Patient is asleep at this time. LUNGS: Clear to auscultation bilaterally. ABDOMEN: Soft. Bowel sounds present. It is nontender and nondistended. Patient is obese. Pendulous abdomen. NECK: Supple. Trachea midline. EXTREMITIES: No calf tenderness. No edema. NEUROLOGICAL: Patient is confused, although the patient's son thinks that she is more alert today. MEDICATIONS: Please see MAR. LABS: Sodium 140, potassium 4.4, chloride 107, CO2 26, BUN 19, creatinine 0.94, glucose 483. Current glucose fingerstick is 121. White count 6.41, hemoglobin 11.5, hematocrit 34.8. DIAGNOSES 1. Uncontrolled diabetes mellitus, type 2 with diabetic ketoacidosis: Patient has D5W at 75 mL per hour. Patient is on sliding scale. Blood sugar was 121 on the last one. 2. Acute kidney injury: Continue on intravenous fluids. Creatinine 0.94 and stable. 3. Hypertension: Will continue to monitor blood pressure. Blood pressure has been stable today. 4. Chronic obstructive pulmonary disease: Continue with neb treatments. 5. Dementia: Continue with supportive care. 6. Hypokalemia: This is resolved and 4.4 today. 7. Elevated TSH: Likely due to refusal to take medications. Will continue to monitor TSH. Will likely change to intravenous levothyroxine at half the dose the patient is on right now. 8. Hypokalemia: Patient was started on Tums by previous provider. 9. Hypernatremia: Patient's sodium is 140, which is stable. Will continue to monitor the patient. DICTATED BY STUART CASTILLO NP Job#: [id number] [place]
[2017-02-14 11:44] VITALS: BP 148/72
[2017-02-14] MEDS: GUAIFENESIN 600MG/DEXTROMETHORPHAN 30MG TABSR PO SCH ×2 (12:00→17:05)
[2017-02-14 15:56] VITALS: BP 106/49
--- NOTE | 2017-02-14 16:12 | Diagnostic Imaging Report ---
PROCEDURE:X-RAY MODIFIED BARIUM SWALLOW COMPARISON:None. INDICATIONS:Not provided. DISCUSSION:Fluoroscopic examination was performed in conjunction with speech pathology, during swallowing of a variety of thin and thick liquid consistencies. Fluoroscopy time 16 seconds Cumulative area dose product 29.63 cGycm2 Cumulative air kerma 0.78 mGy CONCLUSION:No penetration or aspiration. Please see the report from speech pathology for complete details. Dictated by: Josep Cano M.D. on 02/14/2017 at 16:21 Electronically approved by: Josep Cano M.D. on 02/14/2017 at 16:21
[2017-02-14 20:00] VITALS: BP 118/66
[2017-02-14] MEDS: TRAVOPROST(OPTH) 2.5 ML BTL OP SCH (21:00)
[2017-02-14] MEDS: MELATONIN 3 MG TAB PO SCH (21:00)
[2017-02-14] MEDS: DONEPEZIL HCL 5 MG TAB PO SCH (21:00)
[2017-02-14] MEDS: MEMANTINE 10 MG TAB PO SCH (21:00)
[2017-02-15 00:39] VITALS: BP 125/66
[2017-02-15] MEDS: ALBUTEROL SULF 0.083% NEB SOLN 3 ML NEB INH SCH ×2 (00:55→07:25)
[2017-02-15 04:00] VITALS: BP 118/60
[2017-02-15] MEDS: GUAIFENESIN 600MG/DEXTROMETHORPHAN 30MG TABSR PO SCH ×3 (06:17→12:06)
[2017-02-15 06:47] LABS: BASOPHILS % 0.6 % (0.0-1.0); EOSINOPHILS # (AUTO) 0.2 (0.0-0.4); EOSINOPHILS % 3.3 % (0.0-6.0); HEMATOCRIT 33.7 % (34.2-44.1); LYMPHOCYTES # (AUTO) 1.7 (1.0-3.2); LYMPHOCYTES % 30.4 % (18.0-39.1); MEAN CORPUSCULAR HGB CONC 32.6 g/dL (31-35); MEAN CORPUSCULAR VOLUME 101.2 fL (81-99); MONOCYTES # (AUTO) 0.4 (0.2-0.8); MONOCYTES % 7.2 % (4.4-11.3); NEUTROPHILS # (AUTO) 3.1 (2.1-6.9); NEUTROPHILS % 56.8 % (38.7-80.0); PLATELET COUNT 137 x10e3/uL (140-360); RED BLOOD COUNT 3.33 x10e6/uL (3.6-5.1); RED CELL DISTRIBUTION WIDTH 15.9 % (11.7-14.4)
[2017-02-15 07:12] LABS: ANION GAP 10.8 mmol/L (8-16); BLOOD UREA NITROGEN 8 mg/dL (7-26); BUN/CREATININE RATIO 12 (6-25); CALCIUM 7.4 mg/dL (8.4-10.2); CARBON DIOXIDE 26 mmol/L (22-29); CHLORIDE 107 mmol/L (98-107); CREATININE, SERUM 0.65 mg/dL (0.57-1.11); EST GLOMERULAR FILTRATION RATE > 60 ML/MIN (60-); GLUCOSE 190 mg/dL (74-118); POTASSIUM 3.8 mmol/L (3.5-5.1); SODIUM 140 mmol/L (136-145)
[2017-02-15] MEDS: SALMETEROL/FLUTICASONE 250/50 INH SCH (07:25)
[2017-02-15 08:00] VITALS: BP 133/65
[2017-02-15] MEDS: ASPIRIN 81 MG CHEW TAB PO SCH (08:10)
[2017-02-15] MEDS: TIMOLOL MALEATE(OPTHALMIC) 1 EA BTL OU SCH (08:10)
[2017-02-15] MEDS: OYST-CAL-D 500MG TABLET PO SCH (08:10)
[2017-02-15] MEDS: INSULIN REGULAR, HUMAN 100 UNIT/1 ML 3ML VIAL SQ SCH ×2 (08:10→12:06)
[2017-02-15] MEDS: AMLODIPINE BESYLATE 5 MG TAB PO SCH (08:10)
[2017-02-15] MEDS: DORZOLAMIDE/TIMOLOL (OPTH SOL) 10 ML DRPETTE OP SCH ×2 (08:10→15:03)
[2017-02-15] MEDS: PANTOPRAZOLE SOD 40 MG TABEC PO SCH (08:10)
[2017-02-15] MEDS: BIMATOPROST(OPTH) 2.5 ML BOTTLE OP SCH (08:10)
[2017-02-15] MEDS: INSULIN DETEMIR 100 UNIT/ML PEN SQ SCH (08:10)
[2017-02-15] MEDS: HEPARIN SOD (PORCINE) 5,000 UNIT/ML VIAL SC SCH (08:10)
[2017-02-15] MEDS: METOPROLOL SUCCINATE 25 MG TAB XL PO SCH (08:10)
[2017-02-15] MEDS: MULTIVITAMINS/MINERALS TAB PO SCH (08:10)
[2017-02-15] MEDS: ARTIFICIAL TEARS (OPTH) 15 ML BTL OU SCH ×2 (08:10→12:06)
[2017-02-15] MEDS: CALCIUM CARBONATE 500 MG CHEWABLE TABS PO SCH (09:00)
[2017-02-15] MEDS ORDERED: CALCIUM GLUCONATE 10% INJ 9.3 MEQ in SODIUM CHLORIDE 0.9% 100 ML 100 ML IV ONE (10:15)
[2017-02-15] MEDS ORDERED: Calcium Carbonate 500MG Chew PO (10:22)
[2017-02-15] MEDS ORDERED: SODIUM CHLORIDE 0.9% IV SCH (11:00)
[2017-02-15] MEDS ORDERED: CALCIUM CHLORIDE IV SCH (11:00)
[2017-02-15 12:02] VITALS: BP 121/51
--- NOTE | 2017-02-16 13:01 | Discharge Summary ---
ADMITTING DIAGNOSES 1. Uncontrolled type 2 diabetes with diabetic ketoacidosis. 2. Acute kidney injury. 3. Hypertension. 4. Chronic obstructive pulmonary disease. 5. Dementia. DISCHARGE DIAGNOSES 1. Uncontrolled type 2 diabetes with diabetic ketoacidosis. 2. Acute kidney injury. 3. Hypertension. 4. Chronic obstructive pulmonary disease. 5. Dementia. 6. Hypocalcemia. HISTORY: Patient has a history of hypertension, type 2 diabetes, hypothyroidism, dementia, and COPD. Patient is legally blind. She is a resident at [facility]. HOSPITAL COURSE: An 86-year-old female who has been noncompliant with diet and medication, not wanting to eat or take meds. She had poor intake for the last couple of weeks. They have been holding her insulin and her sugar has been noted to be around 500. She was sent to the hospital for evaluation. On admission, a chest x-ray showed no acute thoracic abnormality, mild cardiomegaly without decompensation. CT of the brain showed no acute intracranial abnormality, particularly no acute hemorrhage, mass, or acute major vascular territorial infarct. Chronic findings were moderate ventriculomegaly, disproportionate to the amount of cerebral volume loss. For diabetes, patient was sent to ICU and put on insulin drip protocol. As the DKA resolved, the patient was taken out of ICU and transferred to the floor. She was changed to Levemir twice a day and sliding scale insulin. Her diet was advanced, but the patient still continued to not want to eat or take medication. Swallow evaluation was done and an MBS was done that showed no penetration or aspiration. Patient was allowed to eat and eventually started to eat and take her medications. Patient received many liters of fluid to address the acute kidney injury and dehydration from the DKA. Hypertension, COPD, and dementia were cared for with chronic medications and supportive care. When speaking to the son if the patient was not able to swallow, he was unsure whether he would want a PEG placement or hospice care. Since the patient passed the swallow evaluation and began to eat, the son agreed that the patient can be sent back to [facility]. He was informed that once she gets to the longterm if she decides not to eat that they can invoke hospice at that point. He is aware and agrees with the plan. Transferred to [facility] today. Dictated by: Beth Burks NP ELVIN ESTEVEZ MD Job#: [id number] JUANA
== END 2017-02-15 15:53 | DRG 638 ==
LOC: ER 19:07 → ERHOLD 02-11 00:47 → MED/SURG2 02-11 14:53
PROVIDERS: ADMIT Internal Medicine; ATTEND Internal Medicine
DX: E13.10 Other specified diabetes mellitus with ketoacidosis without coma (principal); N17.9 Acute kidney failure, unspecified; E87.0 Hyperosmolality and hypernatremia; I95.9 Hypotension, unspecified; E86.0 Dehydration; N18.3 Chronic kidney disease, stage 3 (moderate); E83.51 Hypocalcemia; F03.90 Unspecified dementia, unspecified severity, without behavioral disturbance, psychotic disturbance, mood disturbance, and anxiety; I12.9 Hypertensive chronic kidney disease with stage 1 through stage 4 chronic kidney disease, or unspecified chronic kidney disease; E03.9 Hypothyroidism, unspecified; E87.6 Hypokalemia; Z91.11 Patient's noncompliance with dietary regimen; Z91.14 Patient's other noncompliance with medication regimen; Z99.3 Dependence on wheelchair; Z79.4 Long term (current) use of insulin; H54.7 Unspecified visual loss
CPT/HCPCS: 36415; 70450; 71010; 74230; 80048; 80053; 81001; 82140; 82550; 82553; 82948; 83605; 83735; 84443; 84484; 85025; 87086; 87400; 93005; 94640; 97139; 99284; J0610; J1644; J3480; J7030; J7040; J7050; J7799

== ENCOUNTER 2017-05-05 16:07 | Inpatient (IN) | payer MEDICARE, OTHER ==
[~2017-05-05] VITALS: Ht 162.6 cm; Wt 74.0 kg
[~2017-05-05 16:07] MED LIST changes: +ADVAIR 250-501 EACH INH; +ALBUTEROL0.63 MG/3 INH; +ARICEPT5 MG PO; +BENZONATATE100 MG PO; +Calcium Carbonate 500MG Chew PO; +DORZOLAMIDE-TIM10 ML OP; +GLIPIZIDE5 MG PO; +HUMALOG100 UNIT/1 SC; +LORATADINE10 MG PO; +MELATONIN3 MG PO; +PANTOPRAZOLE SO40 MG PO; +POTASSIUM CHLO10 ME1 PO; +TIMOLOL MALEATE10 ML OU; +TRAVATAN Z5 ML OP
--- OUTSIDE RECORDS SUMMARY | 2017-05-05 16:10 | XMS REPORT ---
Author Author [facility] Address Unknown Phone Unavailable Care Team Providers Care Drawer In Stitch Bonding Machine Name Role Phone ELVIN ESTEVEZ Unavailable Unavailable Problems This patient has no known problems. Allergies, Adverse Reactions, Alerts This patient has no known allergies or adverse reactions. Medications This patient has no known medications. Results Test Description Test Time Test Comments Text Results Atomic Results Result Comments MODIFIED BA. SWALLOW [place] [address] Patient Name: FRANKY GARRETT MR #: [id number] : 1930 Age/Sex: 86/F Req #: [id number] [facility] Physician: ELVIN ESTEVEZ MD Ordered by: STUART CASTILLO CARTOGRAPHY TECHNICIAN Report #: [id number] Location: MED/SURG2 Room/Bed: [facility] Procedure: [id number] DX/MODIFIED BA. SWALLOW Exam Date: 02/14/17 Exam Time: 1455 REPORT STATUS: Signed PROCEDURE : X-RAY MODIFIED BARIUM SWALLOW COMPARISON: None. INDICATIONS: Not provided. DISCUSSION: Fluoroscopic examination was performed in conjunction with speech pathology, during swallowing of a variety of thin and thick liquid consistencies. Fluoroscopy time 16 seconds Cumulative area dose product 29.63 cGycm2 Cumulative air kerma 0.78 mGy CONCLUSION: No penetration or aspiration. Please see the report from speech pathology for complete details. Dictated by: Josep Elizondo M.D. on 02/14/2017 at 16:21 Electronically approved by: Josep Elizondo M.D. on 02/14/2017 at 16:21 Dictated By: JOSEP ELIZONDO MD 20 Transcribed By: HELEN on 02/14/17 162 COPY TO: STUART CASTILLO NP CT BRAIN WO [place] [address] Patient Name: FRANKY GARRETT MR #: [id number] : 1930 Age/Sex: 86/F Req #: [id number] Adm Physician: Ordered by: HOLLY OCHOA MD Report #: [id number] Location: ER Room/Bed: Procedure: [id number] CT/CT BRAIN WO Exam Date: 02/10/17 Exam Time: 2049 REPORT STATUS: Signed EXAMINATION: Head CT without contrast. HISTORY:Altered mental status. COMPARISON:CT brain from 11/24/2013. TECHNIQUE: Multidetector axial images were obtained from the foramen magnum to the vertex without contrast. The images were reconstructed using brain and bone algorithms. Thin section brain images were reformatted into coronal and sagittal planes. Intravenous contrast: None IMAGE QUALITY: Acceptable. FINDINGS: Skull/scalp: Unchanged heterogeneous bone marrow density within the skull base possibly due to osseous demineralization. Parenchyma: Nonspecific bilateral frontoparietal patchy white matter hypodensity are likely related to small vessel ischemic changes. No acute intracranial hemorrhage, mass or acute major vascular territorial infarct. Arteries: No density suggestive of thrombosis. Dural sinuses: No abnormal density suggestive of thrombosis. Ventricles: Unchanged moderate ventriculomegaly disproportionate to the extent of cerebral volume loss, may represent normal pressure hydrocephalus in the appropriate clinical setting. Extra-axial spaces: Unchanged tiny punctate fat density lesions scattered in the anterior interhemispheric fissure likely represents tiny lipoma. Brain volume: Normal for age. Craniocervical junction: No mass, Chiari malformation, or basilar invagination. Sella: No mass. Paranasal/mastoid sinuses: Mild mucosal thickening in bilateral maxillary and sphenoid sinuses. IMPRESSION: No acute intracranial abnormality, particularly no acute hemorrhage, mass or acute major vascular territorial infarct. Interval development of mild supratentorial white matter microvascular ischemic changes. Otherwise, no change since CT head from 11/24/2013. Chronic findings: Moderate ventriculomegaly disproportionate to the amount of cerebral volume loss, may represent normal pressure hydrocephalus in the appropriate clinical setting. Signed by: Dr. Josephine Phillips M.D. on 02/10 9:26 PM Dictated By: JOSEPHINE PHILLIPS MD 25 Transcribed By: SHARAD on 02/10/172125 COPY TO: HOLLY OCHOA MD CHEST SINGLE (PORTABLE) [place] [address] Patient Name: FRANKY GARRETT MR #: [id number] : 1930 Age/Sex: 86/F Req #: [id number] Adm Physician: Ordered by: HOLLY OCHOA MD Report #: [id number] Location: ER Room/Bed: ___ Procedure: [id number] DX/CHEST SINGLE (PORTABLE) Exam Date: 02/10/17 Exam Time: 2054 REPORT STATUS: Signed EXAMINATION: CHEST SINGLE (PORTABLE) INDICATION: Altered mental status COMPARISON: 08/23/2015 FINDINGS: TUBES and LINES : None. LUNGS: Lungs are not well inflated. Lungs are clear. There is no evidence of pneumonia or pulmonary edema. PLEURA: No pleural effusion or pneumothorax. HEART AND MEDIASTINUM: Cardiac size is mildly enlarged. There are atherosclerotic calcifications within the aorta. BONES AND SOFT TISSUES: No acute osseous lesion. Soft tissues are unremarkable. UPPER ABDOMEN: No free air under the diaphragm. IMPRESSION: 1. No acute thoracic abnormality. 2. Mild cardiomegaly without the compensation. Signed by: Dr. Tone Husain M.D. on 02/10/2017 9: 53 PM Dictated By: TONE MCMULLEN MD 52 Transcribed By: SHARAD on 02/10/172152 COPY TO: HOLLY OCHOA MD
[2017-05-05] MEDS ORDERED: ALBUTEROL SULF 0.083% NEB SOLN 3 ML NEB NEB STA (16:12)
[2017-05-05] MEDS ORDERED: IPRATROPIUM BROMIDE 0.02% 2.5 ML NEB NEB STA (16:12)
[2017-05-05] MEDS ORDERED: FUROSEMIDE INJ 10 MG/ML 4 ML VIAL IV ONE (16:15)
[2017-05-05 16:50] LABS: BASOPHILS # (AUTO) 0.1 (0.0-0.1); BASOPHILS % 0.3 % (0.0-1.0); BILIRUBIN,URINE NEGATIVE (NEGATIVE); CLARITY,URINE SL CLOUDY (CLEAR); COLOR,URINE YELLOW (YELLOW); EOSINOPHILS # (AUTO) 0.1 (0.0-0.4); EOSINOPHILS % 0.4 % (0.0-6.0); HEMATOCRIT 34.6 % (34.2-44.1); HEMOGLOBIN 10.6 g/dL (12.0-16.0); KETONES,URINE NEGATIVE (NEGATIVE); LEUKOCYTE ESTERASE ,URINE NEGATIVE (NEGATIVE); LYMPHOCYTES # (AUTO) 1.5 (1.0-3.2); MEAN CORPUSCULAR HEMOGLOBIN 31.4 pg (28-32); MEAN CORPUSCULAR HGB CONC 30.6 g/dL (31-35); MEAN CORPUSCULAR VOLUME 102.4 fL (81-99); MONOCYTES # (AUTO) 0.9 (0.2-0.8); MONOCYTES % 5.2 % (4.4-11.3); NEUTROPHILS # (AUTO) 13.9 (2.1-6.9); NEUTROPHILS % 84.4 % (38.7-80.0); NITRITE,URINE NEGATIVE (NEGATIVE); PLATELET COUNT 340 x10e3/uL (140-360); PROTEIN,URINE DIPSTICK 1+ (NEGATIVE); RED BLOOD COUNT 3.38 x10e6/uL (3.6-5.1); RED CELL DISTRIBUTION WIDTH 14.2 % (11.7-14.4); URINE UROBILINOGEN 0.2 mg/dL (0.2 - 1)
[2017-05-05] MEDS ORDERED: ACETAMINOPHEN 1000 MG/100 ML IV STA (16:58)
[2017-05-05 17:03] LABS: AMORPHOUS SEDIMENT,URINE FEW (FEW); BACTERIA,URINE MODERATE /HPF; EPITHELIAL CELLS,URINE FEW /LPF
[2017-05-05 17:06] LABS: INR 1.06; PARTIAL THROMBOPLASTIN TIME 26.4 seconds (23.8-35.5)
[2017-05-05 17:19] LABS: ABG PCO2 72 mmHg (41-51); ABG PO2 89 mmHg (80-105)
[2017-05-05 17:19] LABS: ALBUMIN 3.2 g/dL (3.5-5.0); ALBUMIN/GLOBULIN RATIO 0.8 (0.8-2.0); ANION GAP 12.8 mmol/L (8-16); CALCIUM 8.7 mg/dL (8.4-10.2); CREATININE, SERUM 0.94 mg/dL (0.57-1.11); MAGNESIUM 1.9 MG/DL (1.3-2.1); POTASSIUM 3.8 mmol/L (3.5-5.1)
[2017-05-05 17:20] LABS: ABG HCO3 36 mmol/L (23-28)
[2017-05-05 17:21] LABS: B-TYPE NATRIURETIC PEPTIDE2 220.4 pg/mL (0-100)
[2017-05-05 17:39] LABS: CREATINE KINASE MB 2.4 ng/mL (0-5.0); THYROID STIMULATING HORMONE 24.921 uIU/mL (0.350-4.940)
[2017-05-05] MEDS ORDERED: AZITHROMYCIN 500MG/SOD CHL 0.9% 250ML BAG IV SCH (17:45)
--- NOTE | 2017-05-05 18:24 | Diagnostic Imaging Report ---
PROCEDURE: A single AP view of the chest. COMPARISON: None. INDICATIONS: RESPIRATORY DISTRESS FINDINGS: Lines/tubes: None. Lungs: Lungs are hypoinflated. Diffuse interstitial opacities consistent pulmonary edema. Atelectasis in bilateral lung bases. Pleura: Moderate pleural effusion. Small left pleural effusion. Heart and mediastinum: The heart and the mediastinum are unremarkable. Bones: No acute bony abnormality. IMPRESSION: Pulmonary edema with moderate right and small left pleural effusions. Dictated by: Willam Huerta M.D. on 05/05/2017 at 18:24 Electronically approved by: Willam Huerta M.D. on 05/05/2017 at 18:24
[2017-05-05] MEDS ORDERED: SODIUM CHLORIDE 0.9% 500ML 500 ML IV STA (18:29)
[2017-05-05] MEDS: AZITHROMYCIN 500MG/NS 250 ML 250 ML IV SCH (19:03)
[2017-05-05] MEDS: CEFTRIAXONE SOD 1 GM VIAL IV SCH (19:03)
[2017-05-05] MEDS: SODIUM CHLORIDE 0.9% 1000ML 1,000 ML IV SCH (19:03)
[2017-05-05] MEDS: ALBUTEROL SULF 0.083% NEB SOLN 3 ML NEB NEB SCH ×2 (19:04→23:00)
[2017-05-05] MEDS: IPRATROPIUM BROMIDE 0.02% 2.5 ML NEB NEB SCH (19:04)
[2017-05-05 19:21] LABS: ABG BASE EXCESS 34.6 mmol/L (-2 - 3); ABG HCO3 35 mmol/L (23-28); ABG PCO2 63 mmHg (41-51); ABG PH 7.35 (7.31-7.41); ABG PO2 70 mmHg (80-105)
[2017-05-05 21:15] VITALS: BP 117/52
[2017-05-05 23:33] VITALS: BP 91/39
[2017-05-06 01:26] VITALS: BP 91/39
[2017-05-06] MEDS: ALBUTEROL SULF 0.083% NEB SOLN 3 ML NEB NEB SCH ×6 (03:00→23:44)
[2017-05-06] MEDS: IPRATROPIUM BROMIDE 0.02% 2.5 ML NEB NEB SCH ×5 (03:00→23:44)
[2017-05-06 04:13] LABS: BASOPHILS % 0.3 % (0.0-1.0); EOSINOPHILS # (AUTO) 0.2 (0.0-0.4); EOSINOPHILS % 1.6 % (0.0-6.0); HEMATOCRIT 32.2 % (34.2-44.1); HEMOGLOBIN 9.8 g/dL (12.0-16.0); LYMPHOCYTES # (AUTO) 2.1 (1.0-3.2); LYMPHOCYTES % 17.5 % (18.0-39.1); MEAN CORPUSCULAR HEMOGLOBIN 31.5 pg (28-32); MEAN CORPUSCULAR HGB CONC 30.4 g/dL (31-35); MEAN CORPUSCULAR VOLUME 103.5 fL (81-99); MONOCYTES # (AUTO) 0.6 (0.2-0.8); MONOCYTES % 5.2 % (4.4-11.3); NEUTROPHILS # (AUTO) 9.2 (2.1-6.9); NEUTROPHILS % 74.8 % (38.7-80.0); PLATELET COUNT 296 x10e3/uL (140-360); RED BLOOD COUNT 3.11 x10e6/uL (3.6-5.1); RED CELL DISTRIBUTION WIDTH 14.5 % (11.7-14.4)
[2017-05-06 04:38] LABS: CREATINE KINASE MB 1.9 ng/mL (0-5.0)
[2017-05-06 04:52] LABS: ANION GAP 11.9 mmol/L (8-16); BLOOD UREA NITROGEN 14 mg/dL (7-26); BUN/CREATININE RATIO 16 (6-25); CALCIUM 8.2 mg/dL (8.4-10.2); CARBON DIOXIDE 35 mmol/L (22-29); CHLORIDE 100 mmol/L (98-107); CREATININE, SERUM 0.87 mg/dL (0.57-1.11); EST GLOMERULAR FILTRATION RATE > 60 ML/MIN (60-); GLUCOSE 72 mg/dL (74-118); POTASSIUM 3.9 mmol/L (3.5-5.1); SODIUM 143 mmol/L (136-145)
[2017-05-06] MEDS: CEFTRIAXONE SOD 1 GM VIAL IV SCH ×2 (05:32→18:06)
[2017-05-06 05:33] VITALS: BP 125/48
[2017-05-06 07:20] VITALS: BP 126/49
[2017-05-06] MEDS: SODIUM CHLORIDE 0.9% 1000ML 1,000 ML IV SCH (08:00)
[2017-05-06] MEDS ORDERED: GLIPIZIDE 5 MG TAB PO SCH (09:15)
[2017-05-06] MEDS ORDERED: AMLODIPINE BESYLATE 5 MG TAB PO SCH (09:15)
[2017-05-06] MEDS ORDERED: LEVOTHYROXINE SODIUM 100 MCG TAB PO SCH (09:15)
[2017-05-06] MEDS ORDERED: ACETAMINOPHEN 325 MG TAB PO PRN (09:15)
[2017-05-06] MEDS: LORAZEPAM 0.5 MG TAB PO SCH ×2 (10:24→21:05)
[2017-05-06] MEDS: ASPIRIN 81 MG CHEW TAB PO SCH (10:24)
[2017-05-06] MEDS: METOPROLOL SUCCINATE 25 MG TAB XL PO SCH ×2 (10:25→18:06)
[2017-05-06] MEDS: POTASSIUM CHLORIDE 20 MEQ TAB CR PO SCH (10:25)
[2017-05-06] MEDS: GUAIFENESIN 600MG/DEXTROMETHORPHAN 30MG TABSR PO SCH ×3 (10:29→18:06)
[2017-05-06 12:28] VITALS: BP 149/69
[2017-05-06 13:00] LABS: CREATINE KINASE MB 2.1 ng/mL (0-5.0)
[2017-05-06] MEDS ORDERED: HYDRALAZINE HCL 20 MG/ML VIAL IV PRN (14:15)
[2017-05-06] MEDS ORDERED: DEXTROSE 50% SYRINGE 50 ML IV PRN (14:15)
[2017-05-06] MEDS: ACETYLCYSTEINE 20% INHAL SOLN 30 ML VIAL INH SCH ×2 (14:15→19:22)
[2017-05-06] MEDS: DORZOLAMIDE/TIMOLOL (OPTH SOL) 10 ML DRPETTE OP SCH ×2 (15:47→21:05)
--- NOTE | 2017-05-06 15:48 | History and Physical ---
PRIMARY CARE PROVIDER: Dr. Eliseo Villalta. CHIEF COMPLAINT: Respiratory distress. HISTORY OF PRESENT ILLNESS: Ms. Wilma Rivera is an 86-year-old lady who has been at an assisted living facility. She was diagnosed with pneumonia a couple of weeks ago and was treated with antibiotics at the facility. She seemed to improve with the antibiotics during the first week. During the last few days, the patient has had increasing shortness of breath, chest congestion, orthopnea and decreased responsiveness. The facility felt like she would be better served in the hospital and sent her to the ER for evaluation. She was found to have acute hypercapnic respiratory failure requiring BiPAP. REVIEW OF SYSTEMS: Difficult to obtain as the patient has dementia and is not responding verbally to most of the questions. PAST MEDICAL HISTORY: Significant for hypertension, type-2 diabetes, hypothyroidism, dementia, COPD. MEDICATIONS: Include: 1. Amlodipine 10 mg daily. 2. Aspirin 81 mg daily. 3. Three different glaucoma eyedrops as well as Restasis for dry eyes. 4. Colace 50 mg daily. 5. Aricept 10 mg at bedtime. 6. Namenda 10 mg at bedtime. 7. Lasix 20 mg daily. 8. Glipizide 10 mg twice daily. 9. Mucinex DM as needed. 10. Lorazepam 0.5 mg twice a day. 11. Melatonin 3 mg at bedtime. 12. Metoprolol 12.5 mg twice daily. 13. Protonix 40 mg q.a.m. 14. Potassium 20 mEq daily. 15. Levemir insulin 15 units daily. 16. Regular insulin on sliding scale a.c. and nightly. 17. Calcium carbonate 500 mg daily. 18. Levothyroxine 88 mg daily. 19. Loratadine 10 mg daily. 20. Nitroglycerin as needed. 21. Tramadol as needed. 22. Advair Diskus twice daily. 23. Albuterol neb treatments as needed. ALLERGIES: SHE HAS A STATED ALLERGY TO CODEINE. FAMILY HISTORY: Remarkable for hypertension and diabetes. SOCIAL HISTORY: The patient resides at an assisted living facility. She is unable to get out of bed without assistance. She requires a lot of supervision and assistance for daily living activities. She is . Georgian is her primary language. She does not smoke, drink or use illegal drugs. PHYSICAL EXAMINATION PSYCHIATRIC: The patient is arousable. She is a bit lethargic with paucity of verbal response. She is in some mild respiratory distress and is moderately overweight with a BMI of 34.3. VITAL SIGNS: Blood pressure 126/49, was 104/58 initially. Pulse rate 85, was 113 initially. Respiratory rate initially 26, now 18. O2 sat 99% on 2-liter nasal cannula. Temperature initially 101.4, currently 96.8. HEENT: Her head is atraumatic. Her eyes are anicteric with clear conjunctivae. Ears and nares are without erythema or discharge. Oropharynx is clear. NECK: Supple. No mass or thyromegaly. LYMPHATIC SYSTEM: She has no palpable cervical, axillary or inguinal adenopathy. CARDIOVASCULAR: Heart has a regular rate and rhythm without murmur or extra heart sounds. She has no carotid bruit. She has bibasilar rales. She has no peripheral edema. She has palpable dorsal pedal pulses. RESPIRATORY: Lungs reveal inspiratory and expiratory rhonchi throughout with some basilar crackles and expiratory wheezing. Some prolonged expiration, a productive cough, and some mild respiratory distress. GASTROINTESTINAL: Abdomen is soft without organomegaly, masses or tenderness. She has normal bowel sounds present. CUTANEOUS: Her skin is warm and dry to touch with no rash or skin breakdown. MUSCULOSKELETAL: Her joints are in normal alignment without erythema or swelling. She has no calf tenderness. NEUROLOGIC: Exam is nonfocal with intact cranial nerves and no motor or sensory deficits. DIAGNOSTIC STUDIES: Initial blood gas: pH 7.30, pCO2 72, pO2 89. After the patient was placed on BiPAP, her blood gas came back with pH 7.35, pCO2 63, pO2 70. Her chest x-ray shows bilateral pulmonary edema and bilateral small pleural effusions. Her UA shows moderate bacteria and is growing 50,000 to 100,000 gram-negative rods. Flu screen was negative. Echocardiogram done in 2014 showed ejection fraction of 60% to 65% with concentric left ventricular hypertrophy and evidence of diastolic dysfunction. Her troponin is 0.016, 0.016, 0.003. Lactic acid 16.8. TSH is 24.931. BNP 220.4. Her chemistry shows normal electrolytes, CO2 34, creatinine 0.94 and BUN 15 for a GFR of 56. Glucose is 74. Calcium is 8.7. Her CBC shows a white count of 16.48 with 84% neutrophils, 9% lymphocytes, 5% monocytes. Hemoglobin 10.6, hematocrit 34.6 and platelet count of 340,000. Coags are normal. Transaminases, bilirubin and alk phos are normal. IMPRESSION AND PLAN 1. Acute hypercapnic respiratory failure/acute exacerbation of chronic obstructive pulmonary disease. The patient has been started on BiPAP. Will continue BiPAP as needed, particularly at night. Will try to taper down and wean down to nasal cannula during the day. Will continue supplemental oxygen as well as aggressive neb treatments and Mucinex for expectoration. 2. Bilateral bronchopneumonia with sepsis. The patient has been started on IV Zithromax and Rocephin as well as p.o. Mucinex. Has not required pressors. 3. Urinary tract infection with sepsis. The patient has been started on IV Rocephin empirically pending culture results. 4. Yrrsi-bj-ptohztx diastolic congestive heart failure. The patient has been started on IV Lasix 40 mg q.6 times 4 doses. Will increase her regular p.o. dose from 20 to 40 starting the day after tomorrow. Will check an echocardiogram to update her LV function. 5. Type-2 diabetes. Will continue her glipizide at a lower dose and sliding scale insulin as needed. 6. Hypertension complicated by congestive heart failure. Will continue Norvasc, metoprolol and Lasix and add p.r.n. IV hydralazine. 7. Hypothyroidism. The patient's TSH is elevated at 24. Will increase her levothyroxine from 88 to 125 mcg daily. 8. For prophylaxis, the patient will be using Lovenox for DVT prophylaxis and Protonix for GI prophylaxis. Job#: [id number]
[2017-05-06] MEDS: INSULIN REGULAR, HUMAN 100 UNIT/1 ML 3ML VIAL SQ SCH ×2 (16:30→20:26)
[2017-05-06] MEDS: CYCLOSPORINE OP SCH (17:00)
[2017-05-06 17:13] VITALS: BP 137/61
[2017-05-06] MEDS: AZITHROMYCIN 500MG/NS 250 ML 250 ML IV SCH (18:06)
[2017-05-06] MEDS: FUROSEMIDE INJ 10 MG/ML 4 ML VIAL IV SCH (18:06)
[2017-05-06] MEDS: ENOXAPARIN SOD INJ 40 MG/0.4 ML SYR SC SCH (18:06)
[2017-05-06] MEDS: TIMOLOL MALEATE(OPTHALMIC) 1 EA BTL OU SCH (18:06)
[2017-05-06 19:58] VITALS: BP 122/49
[2017-05-06] MEDS ORDERED: MELATONIN 3 MG TAB PO SCH (21:00)
[2017-05-06] MEDS: TRAVOPROST(OPTH) 2.5 ML BTL OP SCH (21:05)
[2017-05-06] MEDS: DONEPEZIL HCL 5 MG TAB PO SCH (21:05)
[2017-05-06] MEDS: MELATONIN 3 MG TAB PO SCH (21:05)
[2017-05-06] MEDS: MEMANTINE 10 MG TAB PO SCH (21:05)
[2017-05-07] VITALS (10 sets, daily range): BP systolic 106–139; BP diastolic 44–60
[2017-05-07] MEDS: GUAIFENESIN 600MG/DEXTROMETHORPHAN 30MG TABSR PO SCH ×4 (00:17→17:09)
[2017-05-07] MEDS: FUROSEMIDE INJ 10 MG/ML 4 ML VIAL IV SCH ×3 (00:17→12:51)
[2017-05-07] MEDS: IPRATROPIUM BROMIDE 0.02% 2.5 ML NEB NEB SCH ×6 (03:25→22:50)
[2017-05-07] MEDS: ALBUTEROL SULF 0.083% NEB SOLN 3 ML NEB NEB SCH ×6 (03:25→22:50)
[2017-05-07 06:26] LABS: BASOPHILS # (AUTO) 0.1 (0.0-0.1); BASOPHILS % 0.6 % (0.0-1.0); EOSINOPHILS # (AUTO) 0.2 (0.0-0.4); EOSINOPHILS % 2.1 % (0.0-6.0); HEMATOCRIT 33.7 % (34.2-44.1); HEMOGLOBIN 10.4 g/dL (12.0-16.0); LYMPHOCYTES % 30.9 % (18.0-39.1); MEAN CORPUSCULAR HEMOGLOBIN 32.4 pg (28-32); MEAN CORPUSCULAR HGB CONC 30.9 g/dL (31-35); MONOCYTES # (AUTO) 0.9 (0.2-0.8); MONOCYTES % 8.9 % (4.4-11.3); NEUTROPHILS # (AUTO) 5.6 (2.1-6.9); NEUTROPHILS % 56.5 % (38.7-80.0); PLATELET COUNT 250 x10e3/uL (140-360); RED BLOOD COUNT 3.21 x10e6/uL (3.6-5.1); RED CELL DISTRIBUTION WIDTH 14.3 % (11.7-14.4)
[2017-05-07 06:54] LABS: ANION GAP 12.9 mmol/L (8-16); BLOOD UREA NITROGEN 16 mg/dL (7-26); BUN/CREATININE RATIO 21 (6-25); CALCIUM 7.7 mg/dL (8.4-10.2); CARBON DIOXIDE 30 mmol/L (22-29); CHLORIDE 102 mmol/L (98-107); CREATININE, SERUM 0.76 mg/dL (0.57-1.11); EST GLOMERULAR FILTRATION RATE > 60 ML/MIN (60-); GLUCOSE 141 mg/dL (74-118); MAGNESIUM 1.9 MG/DL (1.3-2.1); POTASSIUM 3.9 mmol/L (3.5-5.1); SODIUM 141 mmol/L (136-145)
[2017-05-07] MEDS: CEFTRIAXONE SOD 1 GM VIAL IV SCH ×2 (07:40→17:09)
[2017-05-07] MEDS: LEVOTHYROXINE SODIUM 125 MCG TAB PO SCH (07:42)
[2017-05-07] MEDS: PANTOPRAZOLE SOD 40 MG TABEC PO SCH (07:42)
[2017-05-07] MEDS: GLIPIZIDE 5 MG TAB PO SCH (07:42)
[2017-05-07] MEDS: CYCLOSPORINE OP SCH ×2 (08:05→16:42)
[2017-05-07] MEDS: BIMATOPROST(OPTH) 2.5 ML BOTTLE OP SCH (08:10)
[2017-05-07] MEDS: TIMOLOL MALEATE(OPTHALMIC) 1 EA BTL OU SCH (08:13)
[2017-05-07] MEDS: DORZOLAMIDE/TIMOLOL (OPTH SOL) 10 ML DRPETTE OP SCH ×3 (08:18→21:00)
[2017-05-07] MEDS: METOPROLOL SUCCINATE 25 MG TAB XL PO SCH ×2 (08:19→17:09)
[2017-05-07] MEDS: ASPIRIN 81 MG CHEW TAB PO SCH (08:25)
[2017-05-07] MEDS: INSULIN REGULAR, HUMAN 100 UNIT/1 ML 3ML VIAL SQ SCH ×4 (08:25→21:00)
[2017-05-07] MEDS: DOCUSATE SODIUM 100 MG CAP PO SCH (08:25)
[2017-05-07] MEDS: AMLODIPINE BESYLATE 10 MG TAB PO SCH (08:26)
[2017-05-07] MEDS: POTASSIUM CHLORIDE 20 MEQ TAB CR PO SCH (08:26)
[2017-05-07] MEDS: LORAZEPAM 0.5 MG TAB PO SCH ×2 (08:26→21:33)
[2017-05-07] MEDS ORDERED: FUROSEMIDE 40 MG TAB PO SCH (09:00)
[2017-05-07] MEDS: ACETYLCYSTEINE 20% INHAL SOLN 30 ML VIAL INH SCH ×4 (09:00→23:00)
--- NOTE | 2017-05-07 11:58 | Diagnostic Imaging Report ---
EXAMINATION: CHEST SINGLE (PORTABLE) INDICATION: \S\F/U EFFUSION \S\[id number] \S\[id number] COMPARISON: Chest radiograph 05/05/2017 FINDINGS: AP view TUBES and LINES: None. LUNGS/PLEURA: Moderate right pleural effusion is grossly stable. Worsening opacities in the right mid and lower lung. Trace left effusion. Mild interstitial edema is present. Stable retrocardiac opacity. HEART AND MEDIASTINUM: Cardiac size is mildly enlarged. BONES AND SOFT TISSUES: No acute osseous lesion. Soft tissues are unremarkable. UPPER ABDOMEN: No free air under the diaphragm. IMPRESSION: Worsening right mid and lower lung opacity may represent increasing atelectasis from adjacent effusion or developing pneumonia. Mild interstitial edema. Signed by: DR. Cristofer Bergman MD on 05/07/2017 11:55 AM
[2017-05-07] MEDS ORDERED: CALCIUM GLUCONATE 10% INJ 9.3 MEQ in SODIUM CHLORIDE 0.9% 100 ML 100 ML IV ONE (12:00)
[2017-05-07 12:34] LABS: INR 1.07; PROTHROMBIN TIME 13.1 seconds (11.9-14.5)
--- NOTE | 2017-05-07 13:17 | Cardiology Report ---
DATE OF STUDY: May 06, 2017 ECHOCARDIOGRAM M-MODE: Suboptimal study, poor image quality. Normal chamber sizes. Left ventricular hypertrophy. Normal contractility. Normal mitral aortic valves. Possible pleural effusion. SECTOR SCAN: Suboptimal study, poor image quality. Left ventricular hypertrophy. Normal contractility. Ejection fraction is approximately 55%. Aortic valve was sclerotic. Mitral and tricuspid valves are grossly normal. No pericardial effusion. Possible pleural effusion. CARDIAC DOPPLER STUDY WITH COLOR: Trace aortic regurgitation. CONCLUSION: 1. Suboptimal study with poor image quality. 2. Left ventricular hypertrophy with ejection fraction of approximately 55%. 3. Trace aortic regurgitation with aortic sclerosis. 4. Possible pleural effusion. Job#: [id number] GH cc:ELVIN ESTEVEZ MD
--- NOTE | 2017-05-07 15:14 | Diagnostic Imaging Report ---
EXAM: US CHEST (INCL MEDIASTINUM) INDICATION: \S\pneumonia \S\[id number] \S\[id number] COMPARISON: Same-day chest radiograph TECHNIQUE: Transverse and sagittal images were performed of the right and left chest. FINDINGS: A small to medium sized simple appearing right pleural effusion is noted. A small simple appearing left pleural effusion is noted. IMPRESSION: Small to moderate right pleural effusion and small left pleural effusion. Signed by: DR. Cristofer Bergman MD on 05/07/2017 3:10 PM
--- NOTE | 2017-05-07 15:29 | Diagnostic Imaging Report ---
PROCEDURE: ULTRASOUND GUIDED THORACENTESIS COMPARISON: Patients [facility], DX, CHEST SINGLE (PORTABLE), 05/07/2017, 11:29. Patients [facility], US, US CHEST (INCL MEDIASTINUM), 05/07/2017, 13:16. INDICATIONS: Shortness of breath FINDINGS: After informed consent was obtained, the patient was placed in the sitting position and preliminary ultrasound of the posterior chest identified a safe route into the right pleural effusion. The overlying skin was prepped and draped in usual sterile fashion. Lidocaine 1% was used for local anesthesia. Under ultrasound guidance, a 5 [place] centesis needle was advanced into the pleural fluid and 350 cc's were aspirated. The patient tolerated the procedure well and there were no immediate post-procedural complications. A post-thoracentesis chest radiograph will be obtained. Fluid was sent to laboratory for analysis. CONCLUSION: Uncomplicated ultrasound-guided right thoracentesis with removal of 350 cc's of fluid. Livan Friend D.O. Dictated by: Livan Friend D.O. on 05/07/2017 at 15:29 Electronically approved by: Livan Friend D.O. on 05/07/2017 at 15:29
--- NOTE | 2017-05-07 15:35 | Diagnostic Imaging Report ---
PROCEDURE: CHEST XRAY POST PROCEDURE COMPARISON: Patients [facility], DX, CHEST SINGLE (PORTABLE), 05/07/2017, 11:29. INDICATIONS: POST THORACENTESIS FINDINGS: LUNGS: Right basilar opacity compatible with atelectasis and/or pneumonia. Left retrocardiac opacity is unchanged. PLEURA: Significant decrease in size of the right pleural effusion; status post right thoracentesis. There is no pneumothorax. Small left pleural effusion persists. HEART \T\ MEDIASTINUM: The heart is within normal size-limits. BONES \T\ SOFT TISSUES: No acute findings. CONCLUSION: Status post right thoracentesis with a decrease in size of the effusion; no pneumothorax. Livan Friend D.O. Dictated by: Livan Friend D.O. on 05/07/2017 at 15:35 Electronically approved by: Livan Friend D.O. on 05/07/2017 at 15:35
[2017-05-07 16:57] LABS: BODY FLUID APPEARANCE SL.CLOUDY; BODY FLUID COLOR YELLOW; BODY FLUID TYPE PLEURAL
[2017-05-07 16:58] LABS: RBC,BODY FLUID 264 cells/uL; WBC,BODY FLUID 28 cells/uL
[2017-05-07] MEDS: CALCIUM CARBONATE 500 MG CHEWABLE TABS PO SCH (17:09)
[2017-05-07] MEDS: ENOXAPARIN SOD INJ 40 MG/0.4 ML SYR SC SCH (17:09)
[2017-05-07] MEDS: AZITHROMYCIN 500MG/NS 250 ML 250 ML IV SCH (17:09)
[2017-05-07 17:28] LABS: LYMPHOCYTES,BODY FLUID 29 %; MONO/MACROPHG,BODY FLUID 25 %; NEUTROPHILS,BODY FLUID 44 %; OTHER CELLS,BODY FLUID 2 %
[2017-05-07] MEDS: MELATONIN 3 MG TAB PO SCH (21:33)
[2017-05-07] MEDS: MEMANTINE 10 MG TAB PO SCH (21:33)
[2017-05-07] MEDS: DONEPEZIL HCL 5 MG TAB PO SCH (21:33)
[2017-05-07] MEDS: TRAVOPROST(OPTH) 2.5 ML BTL OP SCH (21:33)
[2017-05-08] MEDS: ALBUTEROL SULF 0.083% NEB SOLN 3 ML NEB NEB SCH ×6 (02:38→23:15)
[2017-05-08] MEDS: IPRATROPIUM BROMIDE 0.02% 2.5 ML NEB NEB SCH ×6 (02:38→23:15)
[2017-05-08] MEDS: ACETYLCYSTEINE 20% INHAL SOLN 30 ML VIAL INH SCH ×6 (03:00→23:15)
[2017-05-08 05:05] VITALS: BP 130/63
[2017-05-08 05:10] VITALS: BP 130/63
[2017-05-08] MEDS: INSULIN REGULAR, HUMAN 100 UNIT/1 ML 3ML VIAL SQ SCH ×5 (05:30→21:00)
[2017-05-08] MEDS: GUAIFENESIN 600MG/DEXTROMETHORPHAN 30MG TABSR PO SCH ×4 (05:33→17:55)
[2017-05-08] MEDS: CEFTRIAXONE SOD 1 GM VIAL IV SCH ×2 (05:33→17:55)
[2017-05-08 07:12] LABS: BASOPHILS % 0.4 % (0.0-1.0); EOSINOPHILS # (AUTO) 0.2 (0.0-0.4); EOSINOPHILS % 1.5 % (0.0-6.0); HEMATOCRIT 32.5 % (34.2-44.1); HEMOGLOBIN 9.9 g/dL (12.0-16.0); LYMPHOCYTES # (AUTO) 1.7 (1.0-3.2); LYMPHOCYTES % 16.3 % (18.0-39.1); MEAN CORPUSCULAR HEMOGLOBIN 31.4 pg (28-32); MEAN CORPUSCULAR HGB CONC 30.5 g/dL (31-35); MEAN CORPUSCULAR VOLUME 103.2 fL (81-99); MONOCYTES # (AUTO) 0.4 (0.2-0.8); MONOCYTES % 4.2 % (4.4-11.3); NEUTROPHILS # (AUTO) 7.8 (2.1-6.9); NEUTROPHILS % 76.7 % (38.7-80.0); PLATELET COUNT 276 x10e3/uL (140-360); RED BLOOD COUNT 3.15 x10e6/uL (3.6-5.1); RED CELL DISTRIBUTION WIDTH 14.2 % (11.7-14.4)
[2017-05-08 07:50] LABS: ANION GAP 15.8 mmol/L (8-16); CALCIUM 8.6 mg/dL (8.4-10.2); CREATININE, SERUM 0.92 mg/dL (0.57-1.11); MAGNESIUM 1.6 MG/DL (1.3-2.1); POTASSIUM 3.8 mmol/L (3.5-5.1)
[2017-05-08 07:53] VITALS: BP 137/53
[2017-05-08] MEDS: PANTOPRAZOLE SOD 40 MG TABEC PO SCH (07:55)
[2017-05-08] MEDS: ASPIRIN 81 MG CHEW TAB PO SCH (07:55)
[2017-05-08] MEDS: DORZOLAMIDE/TIMOLOL (OPTH SOL) 10 ML DRPETTE OP SCH ×3 (07:55→21:55)
[2017-05-08] MEDS: BIMATOPROST(OPTH) 2.5 ML BOTTLE OP SCH (07:55)
[2017-05-08] MEDS: CYCLOSPORINE OP SCH ×2 (07:55→16:04)
[2017-05-08] MEDS: POTASSIUM CHLORIDE 20 MEQ TAB CR PO SCH (07:55)
[2017-05-08] MEDS: LEVOTHYROXINE SODIUM 125 MCG TAB PO SCH (07:55)
[2017-05-08] MEDS: DOCUSATE SODIUM 100 MG CAP PO SCH (07:55)
[2017-05-08] MEDS: GLIPIZIDE 5 MG TAB PO SCH (07:55)
[2017-05-08] MEDS: CALCIUM CARBONATE 500 MG CHEWABLE TABS PO SCH ×2 (07:56→16:04)
[2017-05-08] MEDS: AMLODIPINE BESYLATE 10 MG TAB PO SCH (07:56)
[2017-05-08] MEDS: METOPROLOL SUCCINATE 25 MG TAB XL PO SCH ×2 (07:56→16:04)
[2017-05-08] MEDS: LORAZEPAM 0.5 MG TAB PO SCH (07:56)
[2017-05-08] MEDS ORDERED: FUROSEMIDE 40 MG TAB PO SCH (09:00)
[2017-05-08] MEDS ORDERED: DEXTROSE 50% SYRINGE 50 ML IV PRN (10:00)
[2017-05-08 11:44] VITALS: BP 118/61
[2017-05-08 12:17] VITALS: BP 118/61
[2017-05-08] MEDS: ENOXAPARIN SOD INJ 40 MG/0.4 ML SYR SC SCH (16:04)
[2017-05-08] MEDS: AZITHROMYCIN 500MG/NS 250 ML 250 ML IV SCH (17:55)
[2017-05-08 20:00] VITALS: BP 137/53
[2017-05-08] MEDS: TRAVOPROST(OPTH) 2.5 ML BTL OP SCH (21:55)
[2017-05-08] MEDS: MELATONIN 3 MG TAB PO SCH (21:55)
[2017-05-08] MEDS: DONEPEZIL HCL 5 MG TAB PO SCH (21:55)
[2017-05-08] MEDS: MEMANTINE 10 MG TAB PO SCH (21:55)
[2017-05-09] VITALS: BP 132/61
[2017-05-09] MEDS: LORAZEPAM 0.5 MG TAB PO SCH ×3 (01:56→21:15)
[2017-05-09] MEDS: ALBUTEROL SULF 0.083% NEB SOLN 3 ML NEB NEB SCH ×6 (02:40→23:11)
[2017-05-09] MEDS: IPRATROPIUM BROMIDE 0.02% 2.5 ML NEB NEB SCH ×6 (02:40→23:11)
[2017-05-09] MEDS: ACETYLCYSTEINE 20% INHAL SOLN 30 ML VIAL INH SCH ×2 (02:40→07:03)
[2017-05-09] MEDS: GUAIFENESIN 600MG/DEXTROMETHORPHAN 30MG TABSR PO SCH ×2 (04:17→06:15)
[2017-05-09] MEDS: CEFTRIAXONE SOD 1 GM VIAL IV SCH (06:15)
--- NOTE | 2017-05-09 06:43 | Diagnostic Imaging Report ---
CHEST SINGLE (PORTABLE), 05/09/2017 5:00 AM Technique: CHEST SINGLE (PORTABLE) Comparison: 05/07/2017 Clinical history: Follow-up pneumonia Findings: See Impression Impression: 1. Stable visualized cardiomediastinal silhouette. 2. Persistent bilateral airspace opacities which could reflect a combination of edema, atelectasis and infection, with bilateral effusions. Signed by: Dr Noa Fernandes MD on 05/09/2017 6:39 AM
[2017-05-09 07:00] LABS: BASOPHILS # (AUTO) 0.1 (0.0-0.1); BASOPHILS % 0.5 % (0.0-1.0); EOSINOPHILS # (AUTO) 0.2 (0.0-0.4); EOSINOPHILS % 1.6 % (0.0-6.0); HEMOGLOBIN 10.2 g/dL (12.0-16.0); LYMPHOCYTES # (AUTO) 2.1 (1.0-3.2); LYMPHOCYTES % 21.7 % (18.0-39.1); MEAN CORPUSCULAR HEMOGLOBIN 31.6 pg (28-32); MEAN CORPUSCULAR HGB CONC 30.9 g/dL (31-35); MEAN CORPUSCULAR VOLUME 102.2 fL (81-99); MONOCYTES # (AUTO) 0.7 (0.2-0.8); MONOCYTES % 6.9 % (4.4-11.3); NEUTROPHILS # (AUTO) 6.7 (2.1-6.9); NEUTROPHILS % 68.2 % (38.7-80.0); PLATELET COUNT 253 x10e3/uL (140-360); RED BLOOD COUNT 3.23 x10e6/uL (3.6-5.1); RED CELL DISTRIBUTION WIDTH 13.9 % (11.7-14.4)
[2017-05-09] MEDS: PANTOPRAZOLE SOD 40 MG TABEC PO SCH (07:30)
[2017-05-09] MEDS: GLIPIZIDE 5 MG TAB PO SCH (07:30)
[2017-05-09] MEDS: LEVOTHYROXINE SODIUM 125 MCG TAB PO SCH ×2 (07:30→17:21)
[2017-05-09] MEDS ORDERED: INSULIN DETEMIR 100 UNIT/ML PEN SQ SCH ×2 (07:30→09:00)
[2017-05-09 07:31] LABS: CALCIUM 8.6 mg/dL (8.4-10.2); CREATININE, SERUM 0.9 mg/dL (0.57-1.11); MAGNESIUM 1.4 MG/DL (1.3-2.1)
[2017-05-09 08:00] VITALS: BP 128/59
[2017-05-09] MEDS: INSULIN REGULAR, HUMAN 100 UNIT/1 ML 3ML VIAL SQ SCH (08:10)
[2017-05-09] MEDS ORDERED: DEXTROSE 50% SYRINGE 50 ML IV PRN (08:30)
[2017-05-09] MEDS: CYCLOSPORINE OP SCH ×2 (08:35→17:00)
[2017-05-09] MEDS: DOCUSATE SODIUM 100 MG CAP PO SCH (08:35)
[2017-05-09] MEDS: POTASSIUM CHLORIDE 20 MEQ TAB CR PO SCH (09:00)
[2017-05-09] MEDS: INSULIN DETEMIR 100 UNIT/ML PEN SQ SCH ×3 (09:00→19:42)
[2017-05-09] MEDS: CALCIUM CARBONATE 500 MG CHEWABLE TABS PO SCH ×2 (09:00→17:19)
[2017-05-09] MEDS ORDERED: LEVOTHYROXINE SODIUM 125 MCG TAB PO SCH (09:00)
[2017-05-09] MEDS: ASPIRIN 81 MG CHEW TAB PO SCH (09:00)
[2017-05-09] MEDS: AMLODIPINE BESYLATE 10 MG TAB PO SCH (09:00)
[2017-05-09] MEDS: METOPROLOL SUCCINATE 25 MG TAB XL PO SCH ×2 (09:00→17:30)
[2017-05-09] MEDS: DORZOLAMIDE/TIMOLOL (OPTH SOL) 10 ML DRPETTE OP SCH ×5 (09:00→22:07)
[2017-05-09] MEDS ORDERED: FUROSEMIDE INJ 10 MG/ML 4 ML VIAL IV SCH (10:15)
[2017-05-09] MEDS ORDERED: FUROSEMIDE INJ 10 MG/ML 4 ML VIAL IV ONE (10:15)
--- NOTE | 2017-05-09 10:53 | Consultation ---
DATE OF CONSULTATION: PULMONARY CONSULTATION REASON FOR CONSULTATION: Shortness of breath, pleural effusion. Patient was admitted to the hospital on 05/06/2017 with acute hypoxic and hypercapnic respiratory failure and shortness of breath. HPI: Ms. Wilma Rivera is an 86-year-old female, a group home resident, currently confused and unable to give me much of a history. The patient was admitted on the with [id number] hypercapnic respiratory failure and was started on BiPAP. Thoracentesis was done per the primary physician's recommendation. However, no protein, LDH or any other studies were sent on the pleural fluid. Currently, I have reviewed the patient's chest x-ray, and it is showing evidence of bilateral alveolar infiltrate, increased congestion, possibility of complex effusions bilaterally as well. She is oriented to place and is able to tell me that she is having shortness of breath. However, unable to give me a detailed history. Source of history is the chart. REVIEW OF SYSTEMS: General: She is denying any fever or chills. She says that she is short of breath. She is unable to give me a detailed review of systems. PAST MEDICAL HISTORY: Hypertension, diabetes, hypothyroidism, dementia and reported history of COPD. There is no pulmonary function test in the computer. FAMILY HISTORY: Remarkable for hypertension and diabetes. SOCIAL HISTORY: She is living at a nursing facility. Per the chart, she has not smoked. PHYSICAL EXAMINATION VITAL SIGNS: Temperature 98.3. Pulse of 80. Blood pressure 132/61. Her oxygen saturation is 98%. She is on FiO2 of 60% with IPAP of 12 and EPAP of 6. Per the nurses, when the BiPAP is removed, she desaturates to 85%. HEENT: Head atraumatic and normocephalic. Conjunctivae are pale. Oral mucosa is dry. She has BiPAP mask on. NECK: Supple. No JVD. CHEST: Crackles bilaterally on the bases. Poor effort, not able to cooperate with lung exam much. Occasional wheezing. HEART: S1, S2 audible. No murmurs, gallops or rub. ABDOMEN: Soft, nontender, nondistended. EXTREMITIES: Trace pedal edema. NEUROLOGIC: She is confused. LABS: White count of 16,000 on the . It has come down to 9000, hemoglobin 10.2, platelets 253. Chemistry is within normal limits. When she came in, her creatinine was 0.9. It is still 0.9. Sodium 141. Urine culture is growing out Klebsiella pneumoniae. Blood cultures are negative. Thoracentesis pleural fluid has no cultures. Pleural fluid analysis: Only cell count was sent. No LDH or protein was sent. Influenza was checked, which was negative. BNP on admission was 220, and the repeat one was 62.9. Chest x-ray: I have reviewed the images. Bilateral alveolar infiltrate, possibility of effusion and atelectasis. MEDICATIONS: She is on albuterol and Mucomyst. She is on Rocephin and azithromycin. ASSESSMENT AND PLAN: Wilma Rivera is an 86-year-old female who presented with worsening shortness of breath, cough, confusion on admission. She was hypercapnic with pCO2 of 72. Her bicarbonate since admission has been in the 30s signifying the possibility of chronic hypercapnia. On top of it, she developed acute hypercapnic respiratory failure. Chest x-ray: I have reviewed the images and compared the images. It seems like the patient has bilateral alveolar infiltrate and still has pleural effusion and atelectasis. These findings can also suggest pneumonia in the clinical context as the patient is a group home resident and became hypercapnic. There is a question that she has chronic obstructive pulmonary disease as well. However, I am unsure about her smoking history. PLAN 1. Discontinue Rocephin and azithromycin. Start the patient on IV Zosyn. 2. CT of the chest without contrast. 3. Will ask lab, if they still have pleural fluid, can they run LDH and protein, as that will tell me whether the patient has a transudative or exudative effusion. 4. Continue the patient on BiPAP. Still awake and alert. No repeat ABG. I will attempt to do ABG. Patient is confused and agitated. I am unsure if she will let anybody do ABG. 5. Lasix 40 mg IV times 1 dose. Discontinue the p.o. Lasix. 6. Nebulizer treatment as ordered. 7. The patient is on Ativan, which is making her more agitated and sleepy. Will consider stopping it or decreasing the dose and possibly starting on Seroquel. Thank you for this consult. Job#: [id number]
[2017-05-09 11:55] VITALS: BP 121/66
[2017-05-09] MEDS: BIMATOPROST(OPTH) 2.5 ML BOTTLE OP SCH (12:05)
--- NOTE | 2017-05-09 12:10 | Diagnostic Imaging Report ---
PROCEDURE:CT CHEST WITHOUT CONTRAST COMPARISON:[facility], DX, CHEST SINGLE (PORTABLE), 05/09/2017, 6:19. INDICATIONS:Shortness of breath TECHNIQUE: Routine protocol Volumetric CT chest. No intravenous or enteric contrast. Multiplanar reformatted images. DLP: 462.96 FINDINGS: Lungs: Multifocal centrally predominant airspace opacity and ground glass with interlobular septal thickening. Bilateral lower lobe atelectasis (left complete). Pleura: Large left and moderate right pleural effusions. Airways: Expiration phase trachea and central bronchi are normal. No bronchiectasis. Bilateral bronchial wall thickening. Lymph nodes: 1.6 cm anterior carinal (image 42, series 2) node with multiple subcentimeter mediastinal nodes. No axillary or diaphragmatic nodes. Pulmonary arteries: Main pulmonary artery diameter 3.2 cm; right 2.5; left 2.5. The intraparenchymal pulmonary arteries are enlarged. Thoracic aorta and great vessels: Normal caliber. Mild atherosclerosis. Heart and pericardium: Mild cardiomegaly. No pericardial effusion. Mild mitral anulus and aortic valve calcification. Mild calcified coronary artery disease. Subdiaphragmatic organs: Sliding-type hiatal hernia. Otherwise, grossly unremarkable. Skeleton: Intact. Mild degenerative disc disease than expected for patient age. Benign-appearing sclerotic lesion in the C7 vertebral body. Soft tissues: Normal CONCLUSION: 1. Pulmonary edema, pleural effusions (left greater than right), pulmonary artery enlargement, and cardiomegaly most in keeping with sequela of congestive heart failure. 2. Superimposed pneumonia should be considered in the appropriate clinical context. 3. Mediastinal lymphadenopathy is likely reactive. 4. Complete left lower lobe collapse. Dictated by: Nabil Chand M.D. on 05/09/2017 at 12:11 Electronically approved by: Nabil Chand M.D. on 05/09/2017 at 12:11
[2017-05-09 12:57] LABS: ABG HCO3 33 mmol/L (23-28); ABG PCO2 56 mmHg (41-51); ABG PH 7.38 (7.31-7.41); ABG PO2 114 mmHg (80-105)
[2017-05-09] MEDS: INSULIN LISPRO 100 UNIT/1 ML 3ML VIAL SQ SCH ×3 (13:01→21:00)
[2017-05-09] MEDS: PIPER-TAZ 3.375 GM 50 ML IV SCH ×2 (14:01→23:18)
[2017-05-09] MEDS: ENOXAPARIN SOD INJ 40 MG/0.4 ML SYR SC SCH (17:19)
[2017-05-09 18:04] VITALS: BP 126/56
[2017-05-09 20:00] VITALS: BP 109/40
[2017-05-09] MEDS: DONEPEZIL HCL 5 MG TAB PO SCH (22:07)
[2017-05-09] MEDS: TRAVOPROST(OPTH) 2.5 ML BTL OP SCH (22:07)
[2017-05-09] MEDS: MELATONIN 3 MG TAB PO SCH (22:08)
[2017-05-09] MEDS: MEMANTINE 10 MG TAB PO SCH (22:08)
[2017-05-10] VITALS (8 sets, daily range): BP systolic 114–140; BP diastolic 34–50
[2017-05-10] MEDS: IPRATROPIUM BROMIDE 0.02% 2.5 ML NEB NEB SCH ×6 (02:55→23:26)
[2017-05-10] MEDS: ALBUTEROL SULF 0.083% NEB SOLN 3 ML NEB NEB SCH ×6 (02:55→23:26)
[2017-05-10] MEDS: PIPER-TAZ 3.375 GM 50 ML IV SCH ×3 (06:00→21:06)
[2017-05-10] MEDS: LEVOTHYROXINE SODIUM 125 MCG TAB PO SCH (06:00)
[2017-05-10 06:18] LABS: BASOPHILS # (AUTO) 0.1 (0.0-0.1); BASOPHILS % 0.6 % (0.0-1.0); EOSINOPHILS # (AUTO) 0.2 (0.0-0.4); EOSINOPHILS % 2.2 % (0.0-6.0); HEMATOCRIT 32.8 % (34.2-44.1); HEMOGLOBIN 10.3 g/dL (12.0-16.0); LYMPHOCYTES # (AUTO) 2.2 (1.0-3.2); LYMPHOCYTES % 24.7 % (18.0-39.1); MEAN CORPUSCULAR HEMOGLOBIN 32.1 pg (28-32); MEAN CORPUSCULAR HGB CONC 31.4 g/dL (31-35); MEAN CORPUSCULAR VOLUME 102.2 fL (81-99); MONOCYTES # (AUTO) 0.6 (0.2-0.8); MONOCYTES % 6.1 % (4.4-11.3); NEUTROPHILS % 65.5 % (38.7-80.0); PLATELET COUNT 225 x10e3/uL (140-360); RED BLOOD COUNT 3.21 x10e6/uL (3.6-5.1)
[2017-05-10 06:57] LABS: ANION GAP 16.2 mmol/L (8-16); CALCIUM 8.5 mg/dL (8.4-10.2); MAGNESIUM 1.6 MG/DL (1.3-2.1); POTASSIUM 4.2 mmol/L (3.5-5.1)
[2017-05-10] MEDS: INSULIN LISPRO 100 UNIT/1 ML 3ML VIAL SQ SCH ×4 (08:03→19:56)
[2017-05-10] MEDS: CYCLOSPORINE OP SCH ×2 (08:04→15:51)
[2017-05-10] MEDS: INSULIN DETEMIR 100 UNIT/ML PEN SQ SCH ×2 (08:04→17:16)
[2017-05-10] MEDS: BIMATOPROST(OPTH) 2.5 ML BOTTLE OP SCH (08:19)
[2017-05-10] MEDS: DORZOLAMIDE/TIMOLOL (OPTH SOL) 10 ML DRPETTE OP SCH ×3 (08:19→20:30)
[2017-05-10] MEDS: PANTOPRAZOLE SOD 40 MG TABEC PO SCH (08:19)
[2017-05-10] MEDS: GLIPIZIDE 5 MG TAB PO SCH (08:19)
[2017-05-10] MEDS: DOCUSATE SODIUM 100 MG CAP PO SCH (08:19)
[2017-05-10] MEDS: ASPIRIN 81 MG CHEW TAB PO SCH (08:19)
[2017-05-10] MEDS: AMLODIPINE BESYLATE 10 MG TAB PO SCH (08:20)
[2017-05-10] MEDS: METOPROLOL SUCCINATE 25 MG TAB XL PO SCH ×2 (08:20→17:12)
[2017-05-10] MEDS: CALCIUM CARBONATE 500 MG CHEWABLE TABS PO SCH ×2 (08:20→17:12)
[2017-05-10] MEDS: POTASSIUM CHLORIDE 20 MEQ TAB CR PO SCH (08:20)
[2017-05-10] MEDS: LORAZEPAM 0.5 MG TAB PO SCH (08:21)
[2017-05-10] MEDS ORDERED: FUROSEMIDE INJ 10 MG/ML 4 ML VIAL IV SCH ×2 (09:00)
[2017-05-10] MEDS ORDERED: MAGNESIUM SULFATE 2GM/50ML 50 ML IV ONE (13:00)
[2017-05-10] MEDS: FUROSEMIDE INJ 10 MG/ML 4 ML VIAL IV SCH (17:11)
[2017-05-10] MEDS: ENOXAPARIN SOD INJ 40 MG/0.4 ML SYR SC SCH (17:12)
[2017-05-10] MEDS: DONEPEZIL HCL 5 MG TAB PO SCH (20:16)
[2017-05-10] MEDS: MELATONIN 3 MG TAB PO SCH (20:16)
[2017-05-10] MEDS: MEMANTINE 10 MG TAB PO SCH (20:16)
[2017-05-10] MEDS: TRAVOPROST(OPTH) 2.5 ML BTL OP SCH (20:30)
[2017-05-11] VITALS (10 sets, daily range): BP systolic 122–141; BP diastolic 44–61
[2017-05-11] MEDS: ALBUTEROL SULF 0.083% NEB SOLN 3 ML NEB NEB SCH ×7 (03:22→23:00)
[2017-05-11] MEDS: IPRATROPIUM BROMIDE 0.02% 2.5 ML NEB NEB SCH ×6 (03:22→23:00)
[2017-05-11] MEDS: LEVOTHYROXINE SODIUM 125 MCG TAB PO SCH (08:07)
[2017-05-11] MEDS: PIPER-TAZ 3.375 GM 50 ML IV SCH ×3 (08:07→21:27)
[2017-05-11] MEDS: GLIPIZIDE 5 MG TAB PO SCH (08:13)
[2017-05-11] MEDS: PANTOPRAZOLE SOD 40 MG TABEC PO SCH (08:13)
[2017-05-11] MEDS: ASPIRIN 81 MG CHEW TAB PO SCH (08:20)
[2017-05-11] MEDS: POTASSIUM CHLORIDE 20 MEQ TAB CR PO SCH (08:20)
[2017-05-11] MEDS: DORZOLAMIDE/TIMOLOL (OPTH SOL) 10 ML DRPETTE OP SCH ×3 (08:20→21:26)
[2017-05-11] MEDS: BIMATOPROST(OPTH) 2.5 ML BOTTLE OP SCH (08:20)
[2017-05-11] MEDS: DOCUSATE SODIUM 100 MG CAP PO SCH (08:20)
[2017-05-11] MEDS: CYCLOSPORINE OP SCH ×2 (08:20→16:40)
[2017-05-11] MEDS: FUROSEMIDE INJ 10 MG/ML 4 ML VIAL IV SCH ×2 (08:20→17:09)
[2017-05-11] MEDS: CALCIUM CARBONATE 500 MG CHEWABLE TABS PO SCH ×2 (08:21→17:09)
[2017-05-11] MEDS: AMLODIPINE BESYLATE 10 MG TAB PO SCH (08:41)
[2017-05-11] MEDS: METOPROLOL SUCCINATE 25 MG TAB XL PO SCH ×2 (08:43→17:45)
[2017-05-11] MEDS: INSULIN LISPRO 100 UNIT/1 ML 3ML VIAL SQ SCH ×4 (09:04→21:31)
[2017-05-11] MEDS: INSULIN DETEMIR 100 UNIT/ML PEN SQ SCH ×2 (09:08→17:45)
--- NOTE | 2017-05-11 15:56 | Diagnostic Imaging Report ---
PROCEDURE: A single AP view of the chest. COMPARISON: Patients [facility], CT, CT CHEST WO, 05/09/2017, 11:12. Patients [facility], DX, CHEST SINGLE (PORTABLE), 05/09/2017, 6:19. INDICATIONS: SHORTNESS OF BREATH FINDINGS: See impression. IMPRESSION: 1. persistent bilateral pleural effusions, with questionable increase in right pleural effusion versus layering, and associated atelectasis. 2. Persistent central pulmonary venous congestion and bilateral interstitial and alveolar pulmonary edema, right greater than left. 3. No acute bony abnormalities. Roney Peralta M.D. Dictated by: Roney Peralta M.D. on 05/11/2017 at 15:57 Electronically approved by: Roney Peralta M.D. on 05/11/2017 at 15:57
[2017-05-11] MEDS: ENOXAPARIN SOD INJ 40 MG/0.4 ML SYR SC SCH (17:09)
[2017-05-11 18:55] LABS: CLARITY,URINE CLEAR (CLEAR); COLOR,URINE YELLOW (YELLOW)
[2017-05-11 18:56] LABS: LEUKOCYTE ESTERASE ,URINE NEGATIVE (NEGATIVE); NITRITE,URINE NEGATIVE (NEGATIVE)
[2017-05-11 18:57] LABS: PROTEIN,URINE DIPSTICK TRACE (NEGATIVE)
[2017-05-11 18:58] LABS: BILIRUBIN,URINE NEGATIVE (NEGATIVE); KETONES,URINE NEGATIVE (NEGATIVE); URINE UROBILINOGEN 0.2 mg/dL (0.2 - 1)
[2017-05-11 19:04] LABS: BACTERIA,URINE RARE /HPF; EPITHELIAL CELLS,URINE RARE /LPF; MUCUS,URINE FEW (RARE); WBC,URINE (MAN) 0-5 /HPF (0-5)
[2017-05-11] MEDS: DONEPEZIL HCL 5 MG TAB PO SCH (21:26)
[2017-05-11] MEDS: MELATONIN 3 MG TAB PO SCH (21:26)
[2017-05-11] MEDS: TRAVOPROST(OPTH) 2.5 ML BTL OP SCH (21:26)
[2017-05-11] MEDS: MEMANTINE 10 MG TAB PO SCH (21:26)
[2017-05-12] VITALS: BP 144/63
[2017-05-12] MEDS: IPRATROPIUM BROMIDE 0.02% 2.5 ML NEB NEB SCH ×6 (03:48→23:00)
[2017-05-12] MEDS: ALBUTEROL SULF 0.083% NEB SOLN 3 ML NEB NEB SCH ×6 (03:49→23:00)
[2017-05-12 04:00] VITALS: BP 116/66
[2017-05-12] MEDS: LEVOTHYROXINE SODIUM 125 MCG TAB PO SCH (06:17)
[2017-05-12] MEDS: PIPER-TAZ 3.375 GM 50 ML IV SCH ×3 (06:17→20:17)
[2017-05-12 06:57] LABS: BASOPHILS # (AUTO) 0.1 (0.0-0.1); BASOPHILS % 0.6 % (0.0-1.0); EOSINOPHILS # (AUTO) 0.2 (0.0-0.4); EOSINOPHILS % 2.5 % (0.0-6.0); HEMATOCRIT 34.2 % (34.2-44.1); HEMOGLOBIN 10.8 g/dL (12.0-16.0); LYMPHOCYTES # (AUTO) 2.3 (1.0-3.2); LYMPHOCYTES % 27.4 % (18.0-39.1); MEAN CORPUSCULAR HEMOGLOBIN 31.3 pg (28-32); MEAN CORPUSCULAR HGB CONC 31.6 g/dL (31-35); MEAN CORPUSCULAR VOLUME 99.1 fL (81-99); MONOCYTES # (AUTO) 0.6 (0.2-0.8); MONOCYTES % 7.2 % (4.4-11.3); NEUTROPHILS # (AUTO) 5.2 (2.1-6.9); NEUTROPHILS % 61.7 % (38.7-80.0); PLATELET COUNT 222 x10e3/uL (140-360); RED BLOOD COUNT 3.45 x10e6/uL (3.6-5.1); RED CELL DISTRIBUTION WIDTH 13.9 % (11.7-14.4)
[2017-05-12 07:24] LABS: ANION GAP 12.5 mmol/L (8-16); BLOOD UREA NITROGEN 9 mg/dL (7-26); BUN/CREATININE RATIO 12 (6-25); CALCIUM 8.3 mg/dL (8.4-10.2); CHLORIDE 92 mmol/L (98-107); CREATININE, SERUM 0.77 mg/dL (0.57-1.11); EST GLOMERULAR FILTRATION RATE > 60 ML/MIN (60-); GLUCOSE 104 mg/dL (74-118); MAGNESIUM 1.5 MG/DL (1.3-2.1); POTASSIUM 3.5 mmol/L (3.5-5.1); SODIUM 144 mmol/L (136-145)
[2017-05-12 07:28] LABS: CARBON DIOXIDE 43 mmol/L (22-29)
[2017-05-12 07:57] VITALS: BP 150/69
[2017-05-12 08:10] VITALS: BP 150/69
[2017-05-12] MEDS: BIMATOPROST(OPTH) 2.5 ML BOTTLE OP SCH (09:00)
[2017-05-12] MEDS: CYCLOSPORINE OP SCH ×2 (09:00→17:00)
[2017-05-12] MEDS: DORZOLAMIDE/TIMOLOL (OPTH SOL) 10 ML DRPETTE OP SCH ×3 (09:00→20:17)
[2017-05-12] MEDS ORDERED: ACETAZOLAMIDE SODIUM 500 MG/VIAL IV ONE (10:00)
[2017-05-12] MEDS: ASPIRIN 81 MG CHEW TAB PO SCH (10:13)
[2017-05-12] MEDS: FUROSEMIDE INJ 10 MG/ML 4 ML VIAL IV SCH ×2 (10:13→17:08)
[2017-05-12] MEDS: POTASSIUM CHLORIDE 20 MEQ TAB CR PO SCH (10:13)
[2017-05-12] MEDS: PANTOPRAZOLE SOD 40 MG TABEC PO SCH (10:13)
[2017-05-12] MEDS: GLIPIZIDE 5 MG TAB PO SCH (10:14)
[2017-05-12] MEDS: AMLODIPINE BESYLATE 10 MG TAB PO SCH (10:14)
[2017-05-12] MEDS: CALCIUM CARBONATE 500 MG CHEWABLE TABS PO SCH ×2 (10:14→17:08)
[2017-05-12] MEDS: METOPROLOL SUCCINATE 25 MG TAB XL PO SCH ×2 (10:14→17:08)
[2017-05-12] MEDS: DOCUSATE SODIUM 100 MG CAP PO SCH (10:24)
[2017-05-12] MEDS: INSULIN LISPRO 100 UNIT/1 ML 3ML VIAL SQ SCH ×4 (10:44→21:23)
[2017-05-12] MEDS: INSULIN DETEMIR 100 UNIT/ML PEN SQ SCH ×2 (10:45→18:12)
--- NOTE | 2017-05-12 11:10 | Diagnostic Imaging Report ---
PROCEDURE:US CHEST (INCL MEDIASTINUM) COMPARISON:None. INDICATIONS:PLEURAL EFFUSION Technique: Transverse and longitudinal sonographic imaging of the right and left hemithoraces was performed. Findings: See conclusion CONCLUSION: Small bilateral pleural effusions, left greater than right with underlying atelectatic lung. Dictated by: Manuel Eaton M.D. on 05/12/2017 at 11:11 Electronically approved by: Manuel Eaton M.D. on 05/12/2017 at 11:11
[2017-05-12] MEDS: ENOXAPARIN SOD INJ 40 MG/0.4 ML SYR SC SCH (17:08)
[2017-05-12 20:00] VITALS: BP 130/56
[2017-05-12] MEDS: MEMANTINE 10 MG TAB PO SCH (20:17)
[2017-05-12] MEDS: TRAVOPROST(OPTH) 2.5 ML BTL OP SCH (20:17)
[2017-05-12] MEDS: MELATONIN 3 MG TAB PO SCH (20:17)
[2017-05-12] MEDS: DONEPEZIL HCL 5 MG TAB PO SCH (20:17)
[2017-05-13] VITALS (7 sets, daily range): BP systolic 109–138; BP diastolic 52–77
[2017-05-13] MEDS: IPRATROPIUM BROMIDE 0.02% 2.5 ML NEB NEB SCH ×6 (03:00→23:00)
[2017-05-13] MEDS: ALBUTEROL SULF 0.083% NEB SOLN 3 ML NEB NEB SCH ×6 (03:00→23:00)
[2017-05-13] MEDS: PIPER-TAZ 3.375 GM 50 ML IV SCH ×3 (05:54→22:04)
[2017-05-13] MEDS: LEVOTHYROXINE SODIUM 125 MCG TAB PO SCH (05:54)
[2017-05-13 06:48] LABS: BASOPHILS % 0.5 % (0.0-1.0); EOSINOPHILS # (AUTO) 0.1 (0.0-0.4); EOSINOPHILS % 1.2 % (0.0-6.0); HEMATOCRIT 34.8 % (34.2-44.1); LYMPHOCYTES # (AUTO) 1.9 (1.0-3.2); MEAN CORPUSCULAR HEMOGLOBIN 31.5 pg (28-32); MEAN CORPUSCULAR HGB CONC 31.6 g/dL (31-35); MEAN CORPUSCULAR VOLUME 99.7 fL (81-99); MONOCYTES # (AUTO) 0.5 (0.2-0.8); MONOCYTES % 5.7 % (4.4-11.3); NEUTROPHILS % 69.7 % (38.7-80.0); PLATELET COUNT 210 x10e3/uL (140-360); RED BLOOD COUNT 3.49 x10e6/uL (3.6-5.1); RED CELL DISTRIBUTION WIDTH 13.9 % (11.7-14.4)
[2017-05-13 07:15] LABS: ANION GAP 11.5 mmol/L (8-16); BLOOD UREA NITROGEN 11 mg/dL (7-26); BUN/CREATININE RATIO 13 (6-25); CALCIUM 8.6 mg/dL (8.4-10.2); CARBON DIOXIDE 40 mmol/L (22-29); CHLORIDE 94 mmol/L (98-107); CREATININE, SERUM 0.84 mg/dL (0.57-1.11); EST GLOMERULAR FILTRATION RATE > 60 ML/MIN (60-); MAGNESIUM 1.7 MG/DL (1.3-2.1); SODIUM 143 mmol/L (136-145)
[2017-05-13 07:20] LABS: GLUCOSE 25 mg/dL (74-118); POTASSIUM 2.5 mmol/L (3.5-5.1)
[2017-05-13] MEDS: INSULIN LISPRO 100 UNIT/1 ML 3ML VIAL SQ SCH ×4 (07:30→21:20)
[2017-05-13] MEDS: PANTOPRAZOLE SOD 40 MG TABEC PO SCH (07:30)
[2017-05-13] MEDS: GLIPIZIDE 5 MG TAB PO SCH (07:30)
[2017-05-13] MEDS ORDERED: POTASSIUM CHLORIDE 20MEQ/100ML 200 ML IV ONE ×2 (08:00→12:00)
[2017-05-13] MEDS ORDERED: SODIUM CHLORIDE 0.9% 250ML 250 ML ONE (08:14)
[2017-05-13] MEDS: FUROSEMIDE INJ 10 MG/ML 4 ML VIAL IV SCH ×2 (08:22→17:58)
[2017-05-13] MEDS: AMLODIPINE BESYLATE 10 MG TAB PO SCH (09:00)
[2017-05-13] MEDS: ASPIRIN 81 MG CHEW TAB PO SCH (09:00)
[2017-05-13] MEDS: CYCLOSPORINE OP SCH ×2 (09:00→17:00)
[2017-05-13] MEDS: CALCIUM CARBONATE 500 MG CHEWABLE TABS PO SCH ×2 (09:00→17:59)
[2017-05-13] MEDS: POTASSIUM CHLORIDE 20 MEQ TAB CR PO SCH (09:00)
[2017-05-13] MEDS: METOPROLOL SUCCINATE 25 MG TAB XL PO SCH ×2 (09:00→17:59)
[2017-05-13] MEDS: DOCUSATE SODIUM 100 MG CAP PO SCH (09:00)
[2017-05-13] MEDS ORDERED: LIDOCAINE HCL 4% 50 ML BTL ONE (10:03)
[2017-05-13] MEDS ORDERED: OXYMETAZOLINE HCL 0.05% NAS 1 SPRAY BTL ONE (10:04)
[2017-05-13] MEDS ORDERED: EPINEPHRINE HCL INJ 1 MG/ML AMP ONE (10:04)
[2017-05-13] MEDS ORDERED: LIDOCAINE HCL 2% 30 ML TUBE ONE (10:04)
[2017-05-13] MEDS ORDERED: DEXTROSE 5%/0.45% SOD CHL 1,000 ML IV ONE (10:45)
--- NOTE | 2017-05-13 11:36 | Diagnostic Imaging Report ---
PROCEDURE: A single AP view of the chest. COMPARISON: [facility], , CHEST SINGLE (PORTABLE), 05/11/2017, 15:13. INDICATIONS: POST BRONCH FINDINGS: See impression. IMPRESSION: 1. interval worsening of bilateral central pulmonary venous congestion and pulmonary edema. 2. No significant interval change in bilateral pleural effusions and likely associated lower lobe atelectatic changes. 3. Cardiac silhouette is obscured. Roney Peralta M.D. Dictated by: Roney Peralta M.D. on 05/13/2017 at 11:36 Electronically approved by: Roney Peralta M.D. on 05/13/2017 at 11:36
[2017-05-13] MEDS: BIMATOPROST(OPTH) 2.5 ML BOTTLE OP SCH (11:48)
[2017-05-13] MEDS: DORZOLAMIDE/TIMOLOL (OPTH SOL) 10 ML DRPETTE OP SCH ×3 (11:48→21:00)
[2017-05-13] MEDS ORDERED: LIDOCAINE HCL 2% LOCAL INJ 5 ML SDV VIAL INJ ONE (13:38)
[2017-05-13] MEDS ORDERED: ISOFLURANE INHAL SOLN 250 ML BTL INH ONE (13:38)
[2017-05-13] MEDS ORDERED: LIDOCAINE HCL 2% JELLY 5 ML TUBE ONE (13:38)
[2017-05-13] MEDS ORDERED: PROPOFOL IV EMULSION 10 MG/ML 20 ML VIAL ONE (13:38)
--- NOTE | 2017-05-13 17:02 | Operative Report ---
DATE OF PROCEDURE: PROCEDURE PERFORMED: Bronchoscopy with bronchioalveolar lavage. PREOPERATIVE DIAGNOSIS: Left lower lobe atelectasis and pneumonia. POSTOPERATIVE DIAGNOSIS: Left lower lobe pneumonia and thick purulent phlegm and mucous plugs. PROCEDURE DETAIL: Bronchoscope was advanced through the LMA. Trachea was examined. Thick green mucus was seen all around the trachea. Left lower lobe had mucous plugs and green sputum. Right upper lobe, middle lobe and lower lobe were examined to the segmental level. No mucous plugging or evidence of pneumonia seen and no endobronchial lesion seen. Left lung was examined until segmental level. Left upper lobe, lingula and lower lobe were examined. No endobronchial lesion was seen. Thick purulent mucus and plugs were seen, which were suctioned clean. Patient tolerated the procedure well. Samples were sent for Gram stain and culture. COMPLICATIONS: None. Post-procedure chest x-ray is pending. Job#: [id number]
[2017-05-13] MEDS: TRAVOPROST(OPTH) 2.5 ML BTL OP SCH (21:15)
[2017-05-13] MEDS: DONEPEZIL HCL 5 MG TAB PO SCH (21:30)
[2017-05-13] MEDS: MEMANTINE 10 MG TAB PO SCH (21:45)
[2017-05-13] MEDS: MELATONIN 3 MG TAB PO SCH (21:45)
[2017-05-14] VITALS (9 sets, daily range): BP systolic 101–158; BP diastolic 52–76
[2017-05-14] MEDS: IPRATROPIUM BROMIDE 0.02% 2.5 ML NEB NEB SCH ×6 (03:00→23:40)
[2017-05-14] MEDS: ALBUTEROL SULF 0.083% NEB SOLN 3 ML NEB NEB SCH ×6 (03:00→23:45)
[2017-05-14] MEDS: LEVOTHYROXINE SODIUM 125 MCG TAB PO SCH (06:08)
[2017-05-14] MEDS: PIPER-TAZ 3.375 GM 50 ML IV SCH ×3 (06:08→22:12)
[2017-05-14 07:21] LABS: BASOPHILS # (AUTO) 0.1 (0.0-0.1); BASOPHILS % 0.6 % (0.0-1.0); EOSINOPHILS # (AUTO) 0.1 (0.0-0.4); EOSINOPHILS % 1.7 % (0.0-6.0); HEMOGLOBIN 10.5 g/dL (12.0-16.0); LYMPHOCYTES % 23.4 % (18.0-39.1); MEAN CORPUSCULAR HEMOGLOBIN 31.8 pg (28-32); MEAN CORPUSCULAR HGB CONC 31.8 g/dL (31-35); MONOCYTES # (AUTO) 0.4 (0.2-0.8); MONOCYTES % 4.8 % (4.4-11.3); NEUTROPHILS # (AUTO) 5.8 (2.1-6.9); NEUTROPHILS % 68.9 % (38.7-80.0); PLATELET COUNT 189 x10e3/uL (140-360); RED CELL DISTRIBUTION WIDTH 14.3 % (11.7-14.4)
[2017-05-14 08:07] LABS: ANION GAP 10.8 mmol/L (8-16); CALCIUM 8.1 mg/dL (8.4-10.2); CREATININE, SERUM 1.01 mg/dL (0.57-1.11); MAGNESIUM 1.6 MG/DL (1.3-2.1); POTASSIUM 3.8 mmol/L (3.5-5.1)
[2017-05-14] MEDS: CYCLOSPORINE OP SCH ×2 (08:26→15:55)
[2017-05-14] MEDS: FUROSEMIDE INJ 10 MG/ML 4 ML VIAL IV SCH ×2 (08:26→17:15)
[2017-05-14] MEDS: DOCUSATE SODIUM 100 MG CAP PO SCH (08:26)
[2017-05-14] MEDS: INSULIN LISPRO 100 UNIT/1 ML 3ML VIAL SQ SCH ×4 (08:26→21:10)
[2017-05-14] MEDS: ASPIRIN 81 MG CHEW TAB PO SCH (08:26)
[2017-05-14] MEDS: PANTOPRAZOLE SOD 40 MG TABEC PO SCH (08:26)
[2017-05-14] MEDS: METOPROLOL SUCCINATE 25 MG TAB XL PO SCH ×2 (08:27→17:16)
[2017-05-14] MEDS: POTASSIUM CHLORIDE 20 MEQ TAB CR PO SCH (08:27)
[2017-05-14] MEDS: AMLODIPINE BESYLATE 10 MG TAB PO SCH (08:27)
[2017-05-14] MEDS: CALCIUM CARBONATE 500 MG CHEWABLE TABS PO SCH ×2 (08:27→17:16)
[2017-05-14] MEDS: BIMATOPROST(OPTH) 2.5 ML BOTTLE OP SCH (08:52)
[2017-05-14] MEDS: DORZOLAMIDE/TIMOLOL (OPTH SOL) 10 ML DRPETTE OP SCH ×3 (09:07→21:30)
[2017-05-14] MEDS: FLUCONAZOLE 200 MG/100 ML 100 ML IV SCH (14:03)
[2017-05-14] MEDS: TRAVOPROST(OPTH) 2.5 ML BTL OP SCH (21:30)
[2017-05-14] MEDS: MELATONIN 3 MG TAB PO SCH (21:30)
[2017-05-14] MEDS: DONEPEZIL HCL 5 MG TAB PO SCH (21:30)
[2017-05-14] MEDS: MEMANTINE 10 MG TAB PO SCH (21:40)
[2017-05-15] VITALS (8 sets, daily range): BP systolic 111–146; BP diastolic 51–72
[2017-05-15] MEDS: ALBUTEROL SULF 0.083% NEB SOLN 3 ML NEB NEB SCH ×6 (03:55→22:45)
[2017-05-15] MEDS: IPRATROPIUM BROMIDE 0.02% 2.5 ML NEB NEB SCH ×6 (03:55→22:45)
[2017-05-15] MEDS: LEVOTHYROXINE SODIUM 125 MCG TAB PO SCH (05:43)
[2017-05-15] MEDS: PIPER-TAZ 3.375 GM 50 ML IV SCH (05:43)
[2017-05-15] MEDS: INSULIN LISPRO 100 UNIT/1 ML 3ML VIAL SQ SCH ×4 (07:56→20:18)
[2017-05-15 07:58] LABS: BASOPHILS % 0.4 % (0.0-1.0); EOSINOPHILS # (AUTO) 0.1 (0.0-0.4); EOSINOPHILS % 1.5 % (0.0-6.0); HEMOGLOBIN 10.6 g/dL (12.0-16.0); LYMPHOCYTES % 20.6 % (18.0-39.1); MEAN CORPUSCULAR HEMOGLOBIN 31.8 pg (28-32); MEAN CORPUSCULAR HGB CONC 32.1 g/dL (31-35); MEAN CORPUSCULAR VOLUME 99.1 fL (81-99); MONOCYTES # (AUTO) 0.4 (0.2-0.8); NEUTROPHILS # (AUTO) 6.9 (2.1-6.9); NEUTROPHILS % 72.7 % (38.7-80.0); PLATELET COUNT 220 x10e3/uL (140-360); RED BLOOD COUNT 3.33 x10e6/uL (3.6-5.1); RED CELL DISTRIBUTION WIDTH 13.8 % (11.7-14.4)
[2017-05-15] MEDS: BIMATOPROST(OPTH) 2.5 ML BOTTLE OP SCH (08:19)
[2017-05-15] MEDS: ASPIRIN 81 MG CHEW TAB PO SCH (08:19)
[2017-05-15] MEDS: DOCUSATE SODIUM 100 MG CAP PO SCH (08:19)
[2017-05-15] MEDS: AMLODIPINE BESYLATE 10 MG TAB PO SCH (08:19)
[2017-05-15] MEDS: GLIPIZIDE 5 MG TAB PO SCH (08:19)
[2017-05-15] MEDS: PANTOPRAZOLE SOD 40 MG TABEC PO SCH (08:19)
[2017-05-15] MEDS: CALCIUM CARBONATE 500 MG CHEWABLE TABS PO SCH ×2 (08:19→17:00)
[2017-05-15] MEDS: METOPROLOL SUCCINATE 25 MG TAB XL PO SCH ×2 (08:19→17:00)
[2017-05-15] MEDS: FUROSEMIDE INJ 10 MG/ML 4 ML VIAL IV SCH ×2 (08:19→17:00)
[2017-05-15] MEDS: CYCLOSPORINE OP SCH ×2 (08:19→17:00)
[2017-05-15 08:20] LABS: ANION GAP 15.8 mmol/L (8-16); CALCIUM 8.2 mg/dL (8.4-10.2); CREATININE, SERUM 1.03 mg/dL (0.57-1.11); MAGNESIUM 1.6 MG/DL (1.3-2.1); POTASSIUM 3.8 mmol/L (3.5-5.1)
[2017-05-15] MEDS: POTASSIUM CHLORIDE 20 MEQ TAB CR PO SCH (08:56)
[2017-05-15] MEDS ORDERED: INSULIN DETEMIR 100 UNIT/ML PEN SQ SCH (09:00)
[2017-05-15] MEDS ORDERED: BENZONATATE 100 MG CAP PO PRN (09:30)
[2017-05-15] MEDS: VANCOMYCIN 1GM/NS 250 ML 250 ML IV SCH ×2 (09:47→21:25)
[2017-05-15] MEDS: DORZOLAMIDE/TIMOLOL (OPTH SOL) 10 ML DRPETTE OP SCH ×3 (09:47→21:10)
[2017-05-15] MEDS: FLUCONAZOLE 200 MG/100 ML 100 ML IV SCH (13:00)
[2017-05-15] MEDS ORDERED: SODIUM CHLORIDE 0.9% 250ML 250 ML ONE (14:46)
[2017-05-15] MEDS: INSULIN DETEMIR 100 UNIT/ML PEN SQ SCH (17:00)
[2017-05-15] MEDS: DONEPEZIL HCL 5 MG TAB PO SCH (21:25)
[2017-05-15] MEDS: MELATONIN 3 MG TAB PO SCH (21:25)
[2017-05-15] MEDS: TRAVOPROST(OPTH) 2.5 ML BTL OP SCH (21:25)
[2017-05-15] MEDS: MEMANTINE 10 MG TAB PO SCH (21:25)
[2017-05-16 00:38] VITALS: BP 124/48
[2017-05-16] MEDS: IPRATROPIUM BROMIDE 0.02% 2.5 ML NEB NEB SCH ×4 (03:05→15:00)
[2017-05-16] MEDS: ALBUTEROL SULF 0.083% NEB SOLN 3 ML NEB NEB SCH ×4 (03:05→15:00)
[2017-05-16 06:00] VITALS: BP 142/56
[2017-05-16] MEDS ORDERED: LEVOTHYROXINE SODIUM 75 MCG TAB PO SCH (06:00)
[2017-05-16] MEDS ORDERED: LEVOTHYROXINE SODIUM 125 MCG TAB PO SCH (06:00)
[2017-05-16 06:30] LABS: BASOPHILS # (AUTO) 0.1 (0.0-0.1); BASOPHILS % 0.5 % (0.0-1.0); EOSINOPHILS # (AUTO) 0.2 (0.0-0.4); HEMATOCRIT 30.6 % (34.2-44.1); HEMOGLOBIN 9.8 g/dL (12.0-16.0); LYMPHOCYTES # (AUTO) 2.4 (1.0-3.2); LYMPHOCYTES % 23.5 % (18.0-39.1); MEAN CORPUSCULAR HEMOGLOBIN 31.6 pg (28-32); MEAN CORPUSCULAR VOLUME 98.7 fL (81-99); MONOCYTES # (AUTO) 0.5 (0.2-0.8); MONOCYTES % 4.8 % (4.4-11.3); NEUTROPHILS % 68.8 % (38.7-80.0); PLATELET COUNT 231 x10e3/uL (140-360)
[2017-05-16 06:53] LABS: BLOOD UREA NITROGEN 12 mg/dL (7-26); BUN/CREATININE RATIO 15 (6-25); CALCIUM 8.1 mg/dL (8.4-10.2); CARBON DIOXIDE 37 mmol/L (22-29); CHLORIDE 97 mmol/L (98-107); EST GLOMERULAR FILTRATION RATE > 60 ML/MIN (60-); GLUCOSE 93 mg/dL (74-118); MAGNESIUM 1.6 MG/DL (1.3-2.1); SODIUM 141 mmol/L (136-145)
--- NOTE | 2017-05-16 06:59 | Diagnostic Imaging Report ---
EXAMINATION: CHEST SINGLE (PORTABLE) INDICATION: Pneumonia. COMPARISON: 05/13/2017 FINDINGS: TUBES and LINES: None. LUNGS: Lungs are not well inflated. There are bibasilar atelectasis. There is mild prominence of the central pulmonary vasculature, consistent with pulmonary venous congestion. Interlobular septi thickening present. PLEURA: Moderate right and small left pleural effusions. HEART AND MEDIASTINUM: Cardiac size is moderately enlarged. There are atherosclerotic calcifications within the aorta. BONES AND SOFT TISSUES: No acute osseous lesion. Soft tissues are unremarkable. UPPER ABDOMEN: No free air under the diaphragm. IMPRESSION: Findings are compatible with congestive heart failure. Superimposed infection cannot be excluded. Signed by: Dr. Tone Husain M.D. on 05/16/2017 6:55 AM
[2017-05-16] MEDS: INSULIN LISPRO 100 UNIT/1 ML 3ML VIAL SQ SCH ×3 (07:30→17:23)
[2017-05-16 08:00] VITALS: BP 137/65
[2017-05-16] MEDS: POTASSIUM CHLORIDE 20 MEQ TAB CR PO SCH (08:51)
[2017-05-16] MEDS: PANTOPRAZOLE SOD 40 MG TABEC PO SCH (08:51)
[2017-05-16] MEDS: ASPIRIN 81 MG CHEW TAB PO SCH (08:51)
[2017-05-16] MEDS: METOPROLOL SUCCINATE 25 MG TAB XL PO SCH ×2 (08:52→17:22)
[2017-05-16] MEDS: CALCIUM CARBONATE 500 MG CHEWABLE TABS PO SCH ×2 (08:52→17:22)
[2017-05-16] MEDS: DOCUSATE SODIUM 100 MG CAP PO SCH (08:52)
[2017-05-16] MEDS: AMLODIPINE BESYLATE 10 MG TAB PO SCH (08:52)
[2017-05-16] MEDS: INSULIN DETEMIR 100 UNIT/ML PEN SQ SCH ×2 (08:53→17:22)
[2017-05-16] MEDS: GLIPIZIDE 5 MG TAB PO SCH (08:53)
[2017-05-16] MEDS ORDERED: Megestrol Acetate PO (08:54)
[2017-05-16] MEDS ORDERED: VANCOMYCIN HCL1 GM IV (08:54)
[2017-05-16] MEDS ORDERED: LEVOTHYROXINE125 MCG PO (08:54)
[2017-05-16] MEDS: BIMATOPROST(OPTH) 2.5 ML BOTTLE OP SCH (08:59)
[2017-05-16] MEDS: DORZOLAMIDE/TIMOLOL (OPTH SOL) 10 ML DRPETTE OP SCH ×2 (08:59→16:03)
[2017-05-16] MEDS: FUROSEMIDE INJ 10 MG/ML 4 ML VIAL IV SCH ×2 (08:59→17:22)
[2017-05-16] MEDS ORDERED: MEGACE 400MG/ 10ML CUP PO SCH (09:00)
[2017-05-16] MEDS: CYCLOSPORINE OP SCH ×2 (09:00→17:00)
[2017-05-16] MEDS ORDERED: POTASSIUM CHLORIDE 20 MEQ TAB CR PO NR (09:15)
[2017-05-16] MEDS: VANCOMYCIN 1GM/NS 250 ML 250 ML IV SCH (09:38)
[2017-05-16 10:13] VITALS: BP 137/65
[2017-05-16 12:00] VITALS: BP 144/55
[2017-05-16] MEDS: FLUCONAZOLE 200 MG/100 ML 100 ML IV SCH (12:13)
--- NOTE | 2017-05-16 18:33 | Discharge Summary ---
ADMISSION DIAGNOSES 1. Acute hypercapnic respiratory failure. 1. Acute exacerbation of chronic obstructive pulmonary disease. 2. Bilateral bronchopneumonia with sepsis. 3. Urinary tract infection with sepsis. 4. Type 2 diabetes. 5. Hypertension. 6. Hypothyroidism. 7. Dementia. DISCHARGE DIAGNOSES 1. Acute hypercapnic respiratory failure. 1. Acute exacerbation of chronic obstructive pulmonary disease. 2. Bilateral bronchopneumonia with sepsis. 3. Urinary tract infection with sepsis. 4. Type 2 diabetes. 5. Hypertension. 6. Hypothyroidism. 7. Dementia. 8. Hypoglycemia. 9. Hyperglycemia. 10. Ruled out flu. 11. Hypokalemia. 12. Hypocalcemia. HOSPITAL COURSE: antibiotics during the first week, and then she became increasingly short of breath, complained of chest congestion, orthopnea and decreased responsiveness. When sent to the ER, she was found to have acute hypercapnic respiratory failure requiring BiPAP. She was started on nebs, Mucinex. Started on Rocephin empirically for UTI as well pending culture result. Started on Lasix 40 mg q.6 times 4 doses. Echo was done that showed a trace aortic regurge and aortic sclerosis. Chest x-ray showed pulmonary edema with moderate right and small left effusion. Patient had a with removal of 350 mL of fluid. Post procedure, the patient had a chest ultrasound that showed small bilateral pleural effusions. After the thoracentesis, the patient continued to have respiratory issues. She would drop into the 80s when off BiPAP discontinue the Rocephin and Zithromax . We then ordered a [facility]. In the bronc, thick purulent mucus and plugs were seen, which were suctioned clean. Samples were sent, which then found MRSA. Patient was stopped IV Zosyn and started IV vancomycin. Patient was also found to have klebsiella UTI receiving Rocephin for. Then a repeat culture was done which found yeast. So, she was given 3 doses of fluconazole. Patient's TSH was found to be 24. So, her levothyroxine was increased from 88 mcg to 125 mcg. Patient initially was eating really well . So, her sugar dropped to 25. When that happened, we stopped her started her glipizide for her sugar. So, then we her for normal dose because she does not appear to be eating consistently and she does not eat very much. So, patient cleared for [facility] back to [facility] . Patient was sent on Megace to increase her appetite, 10 more days of vancomycin IV q.12, and an increased dose of 125 levothyroxine the rest of her home medications resumed including and Lasix. She will . Patient is DNR per family request. Family aware of plan. Dictated by: Beth Burks NP ELVIN ESTEVEZ MD Job#: [id number] EV
[2017-05-16] MEDS ORDERED: TRAVOPROST(OPTH) 2.5 ML BTL OP SCH (21:00)
[2017-05-17] MEDS ORDERED: BIMATOPROST(OPTH) 2.5 ML BOTTLE OP SCH (09:00)
== END 2017-05-16 18:13 | DRG 871 ==
LOC: ER 16:12 → ERHOLD 18:16 → EDBEDREQSVC 18:56 → IMCU 20:39 → MED/SURG 05-11 23:28 → MED/SURG2 05-15 10:57
PROVIDERS: ADMIT Internal Medicine; ATTEND Internal Medicine
PROC: 5A09357 Assistance with Respiratory Ventilation, Less than 24 Consecutive Hours, Continuous Positive Airway Pressure (ICD-10-PCS; 2017-05-05)
PROC: 0W993ZX Drainage of Right Pleural Cavity, Percutaneous Approach, Diagnostic (ICD-10-PCS; 2017-05-07)
PROC: 0B9B8ZX Drainage of Left Lower Lobe Bronchus, Via Natural or Artificial Opening Endoscopic, Diagnostic (ICD-10-PCS; principal; 2017-05-13 10:00)
DX: A41.9 Sepsis, unspecified organism (principal); J96.02 Acute respiratory failure with hypercapnia; I50.33 Acute on chronic diastolic (congestive) heart failure; J15.212 Pneumonia due to Methicillin resistant Staphylococcus aureus; J90 Pleural effusion, not elsewhere classified; T17.890A Other foreign object in other parts of respiratory tract causing asphyxiation, initial encounter; J44.1 Chronic obstructive pulmonary disease with (acute) exacerbation; J45.901 Unspecified asthma with (acute) exacerbation; I11.0 Hypertensive heart disease with heart failure; F03.90 Unspecified dementia, unspecified severity, without behavioral disturbance, psychotic disturbance, mood disturbance, and anxiety; E11.649 Type 2 diabetes mellitus with hypoglycemia without coma; N39.0 Urinary tract infection, site not specified; B37.49 Other urogenital candidiasis; E03.9 Hypothyroidism, unspecified; Z88.5 Allergy status to narcotic agent; B96.1 Klebsiella pneumoniae [K. pneumoniae] as the cause of diseases classified elsewhere; E83.51 Hypocalcemia; R65.20 Severe sepsis without septic shock; E87.6 Hypokalemia; E11.65 Type 2 diabetes mellitus with hyperglycemia; Z66 Do not resuscitate
CPT/HCPCS: 32555; 36415; 36600; 71045; 71250; 76604; 80048; 80053; 81001; 82550; 82553; 82805; 82948; 83605; 83615; 83735; 83880; 84100; 84132; 84157; 84295; 84439; 84443; 84484; 85025; 85610; 85730; 87040; 87070; 87086; 87186; 87205; 87335; 87400; 88112; 88305; 89051; 93005; 93306; 94640; 94660; 94667; 94668; 96367; 96372; 96376; 97139; 99285; J0171; J0456; J0610; J0696; J1450; J1650; J1940; J2001; J2543; J3370; J3480; J7030; J7050; J7799